=== PATIENT | male | born 1950 | race Caucasian/White ===

== ENCOUNTER 2016-12-26 14:04 | Inpatient (IN) ==
--- NOTE | 2016-12-26 14:28 | Emergency Department Report ---
Dizziness HPI - General Chief Complaint: Dizziness Stated Complaint: dizziness x3 days Time Seen by Provider: 12/26/16 14:27 Source: patient, family, EMS, old records reviewed Mode of arrival: EMS Limitations: no limitations - History of Present Illness HPI Narrative: Patient is a 66-year-old male presents emergency for evaluation of dizziness. Patient has been having intermittent dizziness for months now, originally saw Dr. Enrique Teixeira is an established patient in mid November was complaining of some mild dizziness at that time. Patient also been having intermittent chest pain, was admitted for 2-3 days by [facility] for evaluation of chest pain was discharged home with atypical chest pain. Patient had repeat significant dizziness at that time so represented same data [facility] emergency department. Patient was given meclizine with resolution of symptoms was discharged home on oral meclizine. Patient presented on Sunday to the [facility] emergency department complaining of severe dizziness not relieved by meclizine. Patient received a full workup including a CT scan, patient was able to ambulate with walker at that time, patient declined admission to intermediate or other facility and was discharged home to follow-up with Dr. Teixeira. Patient did follow-up with Dr. Teixeira yesterday, there was a 2nd attempt made to obtain an outpatient MRI. Scheduling called patient this morning patient told to schedule her that he was lying on the floor due to severe dizziness and he had fallen twice since Sunday. Scheduled call Dr. Teixeira's nurse, who called his brother. Brother called EMS to bring patient to the ER for evaluation. On arrival patient didn't take any of continued severe dizziness, last meclizine at 11 AM MD complaint: dizziness - Related Data Home Medications Medication Instructions Recorded Confirmed Lisinopril [Zestril] 40 mg PO DAILY 12/24/16 12/26/16 Amlodipine [Norvasc] 10 mg PO DAILY 12/26/16 12/26/16 Benzonatate [Tessalon Perles] 100 mg PO TID PRN 12/26/16 12/26/16 Meclizine [Antivert] 25 mg PO QIDPRN PRN 12/26/16 12/26/16 Allergies Allergy/AdvReac Type Severity Reaction Status Date / Time No Known Allergies Allergy Verified 12/26/16 14:17 Review of Systems Constitutional: Reports: weakness. Denies: fever, chills Eyes: Reports: vision change. Denies: eye pain, eye discharge ENT: Denies: ear pain, throat pain, dental pain Cardiovascular: Denies: chest pain, palpitations, dyspnea on exertion Respiratory: Denies: cough, dyspnea, wheezes Gastrointestinal: Denies: abdominal pain, nausea, vomiting Genitourinary: Denies: urgency, dysuria, frequency Neurological: Reports: weakness (generalized nonspecific). Denies: headache Endocrine: Reports: fatigue. Denies: heat or cold intolerance Hematological/Lymphatic: Denies: easy bleeding PFSH Patient Stated Medical History Other HEENT Yes: dental Hypertension Yes Clinic Medical History (Last Updated 12/25/16 @ 14:44 by NELI Christian ) HTN (hypertension) (Chronic Medical) Surgical History: Prostate removed 2005. Hernia repaired 2006 Family History: Family History (Last Updated 12/25/16 @ 14:46 by NELI Christian) Father Emphysema, unspecified Heart disease Mother Dementia - Social History Smoking status: Current every day smoker Substance use type: does not use Alcohol intake frequency: does not drink Current residence: Apartment/Private Home Physical Exam - General General appearance: alert - Eye Eye exam: Present: PERRL, EOMI - ENT ENT exam: Present: normal oropharynx, mucous membranes dry - Neck Neck exam: Present: full ROM - Chest Chest inspection: Present: symmetric chest wall rise. Absent: tenderness - Respiratory Respiratory exam: Present: normal lung sounds bilaterally. Absent: respiratory distress, wheezes, stridor - Cardiovascular Cardiovascular exam: Present: regular rate, normal rhythm, normal heart sounds - Abdominal Exam Abdominal exam: Present: soft, normal bowel sounds. Absent: distention, tenderness - Back Exam Back exam: Absent: tenderness, CVA tenderness (R), CVA tenderness (L), muscle spasm, paraspinal tenderness - Skin Skin exam: Present: warm, dry - Expanded Neurological Exam Patient oriented to: Present: person, place, time Speech: Present: fluid speech Cranial nerves: Normal: EOM function (II, III, IV, ), facial sensation (V), facial palsy (VII), gag reflex (IX), spinal accessory function (XI), tongue deviation (XII) Cerebellar function: Normal: finger to nose Motor strength - LUE: 5/5 Motor strength - RUE: 5/5 Motor strength - LLE: 4/5 Motor strength - RLE: 4/5 Sensory exam upper extremity: Normal: light touch Sensory exam lower extremity: Normal: light touch DTR: 2+: biceps (L), biceps (R) Coma scale eye opening: spontaneous Coma scale motor response: obeys commands Coma scale verbal response: oriented Coma scale total: 15 - Psychiatric Psychiatric exam: Present: normal affect, normal mood Course Vital Signs Temperature 98.3 F 12/26/16 14:04 Pulse Rate 59 L 12/26/16 14:04 Respiratory Rate 18 12/26/16 14:04 Blood Pressure 156/73 H 12/26/16 14:04 Pulse Oximetry 96 12/26/16 14:04 Temperature 98.3 F 12/26/16 14:04 Pulse Rate 55 L 12/26/16 15:46 Respiratory Rate 18 12/26/16 15:46 Blood Pressure 132/74 12/26/16 15:46 Pulse Oximetry 93 12/26/16 15:46 Dizziness - MDM Narrative Medical decision making narrative: Discuss case with Dr. Bliss, please give 325 of aspirin, he will admit inpatient - Differential Diagnosis Likely: benign paroxysmal positional vertigo, orthostatic hypotension, vertebral basilar insufficiency, cerebrovascular accident, acute vestibular neuronitis, transient cerebral ischemia - Medical Records Attestation: I reviewed the patient's medical records. - Lab Data Attestation: I reviewed the patient's lab results. Result diagrams: 12/26/16 14:46 12/26/16 14:46 Lab Results 12/26/16 12/26/16 Range/Units 14:46 14:46 WBC 13.1 H (4.5-11.0) T/MM3 RBC 4.77 (4.50-5.90) M/MM3 Hgb 16.0 (13.5-17.5) GM/DL Hct 47.9 (41-53) % MCV 100.4 H (80-100) UM3 MCH 33.5 (26-34) UUG MCHC 33.4 (31-37) GM/DL RDW Std Deviation 50.5 H (36.9-50.2) FL Plt Count 245 (130-400) T/MM3 MPV 11.2 (9.4-12.4) UM3 Immature Gran % (Auto) 0.4 (0.0-0.5) % Neut % (Auto) 73.6 H (33-66) % Lymph % (Auto) 13.7 L (23-45) % [place] % (Auto) 9.8 H (0-9.0) % Eos % (Auto) 1.8 (0-4) % Baso % (Auto) 0.7 (0-2) % Neut # (Auto) 9.6 H (1.8-7.7) T/MM3 Lymph # (Auto) 1.8 (1-4.8) T/MM3 [place] # (Auto) 1.3 H (0-0.8) T/MM3 Eos # (Auto) 0.2 (0-0.5) T/MM3 Baso # (Auto) 0.1 (0-0.2) T/MM3 Abs Immat Gran (auto) 0.05 H (0.00-0.03) T/MM3 Turbidity < 20 (0-20) Sodium 145 H (134-144) MEQ/L Potassium 3.9 (3.6-5) MEQ/L Chloride 113 H D (98-107) MEQ/L Carbon Dioxide 22 (22-30) MEQ/L Anion Gap 10 (5-15) MEQ/L BUN 11.0 (9-20) MG/DL Creatinine 0.9 D (0.8-1.5) MG/DL GFR Calculation 84 BUN/Creatinine Ratio 12 (6-26) RATIO Glucose 90 (75-110) MG/DL Calculated Osmolality 278 (261-280) MOSM/KG Calcium 9.6 (8.4-10.2) MG/DL Total Bilirubin 1.20 (0.20-1.30) MG/DL Icterus Index < 2 (0-7) AST 23 D (17-59) U/L ALT 42 (21-72) U/L Alkaline Phosphatase 72 (38-126) U/L Troponin I < 0.012 (0-0.12) ng/ml Total Protein 7.1 (6.3-8.2) G/DL Albumin 4.0 (3.5-5.0) G/DL Globulin 3.1 (2.4-3.6) G/DL Albumin/Globulin Ratio 1.3 (1.1-2.2) RATIO Specimen Hemolysis < 15 (0-25) Alcohol, Quantitative <10 (<10) MG/DL - Radiology Data Attestation: I reviewed the patient's radiology results. 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 Rate: bradycardia Rhythm: NSR [place]/QRS: normal Interpretation: no acute changes Disposition Clinical Impression: Cerebrovascular accident Qualifiers: CVA mechanism: embolism Precerebral and cerebral artery: posterior cerebral artery Laterality of affected vessel: left Qualified Code(s): I63.432 - Cerebral infarction due to embolism of left posterior cerebral artery Condition: Stable Time of Disposition: 15:32 - Seen By: physician
[2016-12-26] MEDS ORDERED: MECLIZINE 25 MG TABLET PO ONE (14:37)
--- NOTE | 2016-12-26 15:21 | CT Scan Report ---
Indication: Multiple recent falls PROCEDURE: CT head/brain wo con: Encounter: Initial Comparison: Head CT dated December 24, 2016 Technique: Axial CT images through the head were performed without contrast. Iterative Reconstruction dose reducing technique was utilized. FINDINGS: The ventricles are unchanged. There is a new infarct seen in the medial left occipital lobe as seen on axial image #24 with loss of the multani-white differentiation. Old bilateral basal ganglia lacunar infarcts. There is no evidence of acute intracranial hemorrhage, midline displacement, or mass effect. There are scattered areas of low attenuation in the white matter which most likely represent changes of chronic microvascular ischemia. The tympanic cavities and mastoid air cells are free of appreciable disease. There are no definite fractures of the skull base, calvarium, or visualized portion of the midface. 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 This is not visible on the comparison study and is estimated at 12 to 48 hours of age. Findings were called to Dr. Morrissey in the emergency department at 1515 on December 26, 2016. .
[2016-12-26] MEDS ORDERED: ASPIRIN 325 MG TABLET PO ONE (15:30)
[2016-12-26] MEDS ORDERED: BENZONATATE 100 MG CAPSULE PO PRN (16:11)
[2016-12-26] MEDS ORDERED: BISACODYL 10 MG SUPPOSITORY RECTALLY PRN (16:11)
[2016-12-26] MEDS ORDERED: ONDANSETRON 4 MG/2 ML INJECTION IVP PRN (16:11)
[2016-12-26] MEDS ORDERED: MECLIZINE 25 MG TABLET PO PRN (16:11)
[2016-12-26] MEDS: 1/2 NS 1,000 ML IV SCH (16:41)
--- NOTE | 2016-12-26 17:44 | History & Physical Report ---
<HusseinVesna guzman Martinez - Last Filed: 12/26/16 18:24> History of Present Illness Date: 12/26/16 Chief complaint: Dizziness HPI: Mr. Mena is a 66 y/o male who has had intermittent issues with dizziness, near-syncope, and vertigo for the last several months. He established with Dr. Teixeira in November, after not seeing a provider in over 2 years. He was started on Lisinopril for HTN and an MRI was ordered. Due to scheduling and insurance issues, this was not done in a timely manner. He was admitted to [facility] for chest pain r/o on 12/19/16 - EKG showed SR with PAC's, inverted T waves in leads II & III; serial troponin was negative x3; a CTA Chest showed a stable ascending aortic aneurysm; a myocardial perfusion study by Dr. Knott was normal with an estimated EF of 72%; carotid duplex was negative for hemodynamically significant stenosis. He was sent home and HCTZ was discontinued d/t fall risk. He was Rx meclizine for dizziness. He was evaluated again at [facility] on 12/24/16 for dizziness and a fall at home. Here, he received IVF and his dizziness improved. Head CT was negative for stroke or bleed. He was sent home in stable condition, but continued to have dizziness and generalized weakness. He has not eaten anything for the last 1-2 days, and hardly has taken in any fluids - has no appetite lately. His memory is fuzzy regarding his recent admission, and he feels like he's had some memory loss. When MRI called to schedule an appointment, he reported to the person on the other end of the line that he was on the floor. They contacted Iván's brother, who activated [address] scan in the ED showed a COMPUTER SYSTEMS MANAGER territory stroke. Labs showed mild leukocytosis, mild hypernatremia. Troponin was negative. EKG showed sinus heidi. He was given ASA and meclizine in the ED. Dr. Chi was contacted, and admitted Mr. Mena to inpatient status. Review of Systems - Constitutional Constitutional: Present: anorexia, chills (always cold), weakness. Absent: fever(s), headache(s) - EENMT Eyes: Present: change in vision, loss of vision Balance: Present: vertigo Mouth/Throat: Present: dry mouth. Absent: changes in swallowing - Cardiovascular Cardiovascular: Present: chest pain (recent admission for chest pain) Vascular: Absent: pedal edema - Respiratory Respiratory: Present: cough (occasional) - Gastrointestinal Gastrointestinal: Present: diarrhea (few days ago). Absent: abdominal pain, vomiting - Genitourinary Genitourinary: Present: other (decreased output). Absent: dysuria - Musculoskeletal Musculoskeletal: Present: abnormal gait, muscle weakness - Integumentary/Breasts Integumentary: Absent: rash, wounds - Neurological Neurological: Present: abnormal gait, dizziness, frequent falls, memory loss ( recently), weakness. Absent: focal weakness, numbness, paresthesias - Psychiatric Psychiatric: Present: depression (since the dizziness started). Absent: anxiety - Endocrine Endocrine: Absent: palpitations - Hematologic/Lymphatic Hematologic/Lymphatic: Absent: easy bleeding, easy bruising - Allergic/Immunologic Allergic/Immunologic: Absent: seasonal rhinorrhea PFSH HTN Prostate cancer stable ascending aortic aneurysm 4.4x3.[address] on 12/21/16 Surgical History: Prostate removed 2005. Colonoscopy. Epigastric hernia repaired 2006. [place] perfusion scan on 12/20/16 was negative for ischemia with EF of 72%. 2D Echo on 12/20/16 showed normal wall thickness, EF 60%, no wall motion abnormalities Family History: Family History (Last Updated 12/25/16 @ 14:46 by Heena Henry [facility]) Father Emphysema, unspecified Heart disease Mother Dementia - Social History Smoking status: Current every day smoker Packs per day: 1 Substance use type: does not use Alcohol intake frequency: 0-2 drinks per day (2-3 beers/day for the last 8-12 months. 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 Medications Home Medications Medication Instructions Recorded Confirmed Type Lisinopril [Zestril] 40 mg PO DAILY 12/24/16 12/26/16 History Amlodipine [Norvasc] 10 mg PO DAILY 12/26/16 12/26/16 History Benzonatate [Tessalon Perles] 100 mg PO TID PRN 12/26/16 12/26/16 History Meclizine [Antivert] 25 mg PO QIDPRN PRN 12/26/16 12/26/16 History Allergies Allergy/AdvReac Type Severity Reaction Status Date / Time No Known Allergies Allergy Verified 12/26/16 14:17 Exam Vital Signs: Temperature 97.6 F 12/26/16 16:11 Pulse Rate 58 L 12/26/16 16:11 Respiratory Rate 20 12/26/16 16:11 Blood Pressure 136/77 12/26/16 16:11 Pulse Oximetry 95 12/26/16 16:11 Height/Weight/BMI: Height 1.68 m Weight 66.4 kg Body Mass Index 23.6 - Constitutional Present: no acute distress, well nourished, well developed, thin - Routine HEENT Exam Head: Present: normocephalic Eye: Present: EOMI (some difficulty with EOM), PERRL ENT: Present: mucous membranes dry, oropharynx clear. Absent: dentition normal (edentulous) - Routine Neck Exam Present: supple - Routine Respiratory Exam Present: CTA bilaterally - Routine Cardiovascular Exam Present: RRR, S1, S2 - Routine Abdominal Exam Present: soft, normoactive bowel sounds, non distended, non tender - Routine Extremities Exam Present: no edema, pulses intact - Routine Skin Exam Present: intact, dry, warm - Routine Neurological Exam Present: alert, oriented X3, CN II-XII intact, motor deficit (possibly slightly weaker with left arm flexion but on further assessments this wasn't as appreciated), moving all extremities, hearing grossly intact. Absent: pronator drift, altered mental status, nystagmus, vision grossly intact (barely can see my fingers ), facial asymmetry, normal speech (occasionally slurs his speech), tremors - Routine Psychiatric Exam Present: normal affect, normal thought process (occasionally repeats himself), cooperative Results - Labs CBC & Chem 7: 12/26/16 14:46 12/26/16 14:46 - ECG Data Tracing #1 I reviewed this ECG and interpreted as documented below: Sinus bradycardia - Imaging and Cardiology CT scan - head Status: image reviewed by me (stroke - left occipital area) Assessment and Plan (1) Cerebrovascular accident Current visit: Yes Status: Acute DVT Prophylaxis: SCD's Resuscitation Status: Do Not Resuscitate Assessment and Plan: IMPRESSION Subacute ischemic infarct in the COMPUTER SYSTEMS MANAGER territory Acute vision loss Leukocytosis, POA - possible stress reaction Mild hypernatremia, POA HTN Prostate cancer stable ascending aortic aneurysm 4.4x3.[address] on 12/21/16 EtOH abuse; tobacco dependency PLAN Admit, inpatient status under the hospitalist service. IVF for hypernatremia and decreased oral drive - 1/2 NS at 75 mL/hr. Consult PT/OT/ST. Describes some features of vertigo, and perhaps an Alin maneuver could be attempted. Suspect he would benefit from IRU or SNF after acute discharge. With visual loss, consider ophtho consultation. Start ASA and statin. Check lipids in am. History of EtOH use - currently drinks 2-3 beers per day. Start Thiamine and Folate; Ativan PRN withdrawal symptoms. Nicotine patch PRN. Consult RT for tobacco cessation counseling. Lisinopril and Norvasc for HTN. He was on HCTZ but this was Dc'd d/t fall risk. Advanced directives: No DPOA; requests DNR status. [facility] records were reviewed. He had a myocardial perfusion scan which was negative, an echocardiogram that showed an EF 60% with normal wall thickness and no regional wall motion abnormalities. He also had a carotid Doppler that was negative for hemodynamically significant carotid artery stenosis. He also had a CTA of his chest done which showed a stable descending aorta that measures up to 4.4 x 3.8 cm. TSH on 12/20/16 was 0.93 & hgb A1c was 5.6%. No recent lipid panel. Hospital Course Summary Disclaimer: The visit summary below is not to be considered part of the above Progress Note. Hospital Course: 12/26/16 18:42 IMPRESSION Subacute ischemic infarct in the COMPUTER SYSTEMS MANAGER territory Acute vision loss Leukocytosis, POA - possible stress reaction Mild hypernatremia, POA HTN Prostate cancer stable ascending aortic aneurysm 4.4x3.[address] on 12/21/16 EtOH abuse; tobacco dependency PLAN Admit, inpatient status under the hospitalist service. IVF for hypernatremia and decreased oral drive - 1/2 NS at 75 mL/hr. Consult PT/OT/ST. Describes some features of vertigo, and perhaps an Alin maneuver could be attempted. Suspect he would benefit from IRU or SNF after acute discharge. With visual loss, consider ophtho consultation. Start ASA and statin. Check lipids in am. History of EtOH use - currently drinks 2-3 beers per day. Start Thiamine and Folate; Ativan PRN withdrawal symptoms. Nicotine patch PRN. Consult RT for tobacco cessation counseling. Lisinopril and Norvasc for HTN. He was on HCTZ but this was Dc'd d/t fall risk. Advanced directives: No DPOA; requests DNR status. [facility] records were reviewed. He had a myocardial perfusion scan which was negative, an echocardiogram that showed an EF 60% with normal wall thickness and no regional wall motion abnormalities. He also had a carotid Doppler that was negative for hemodynamically significant carotid artery stenosis. He also had a CTA of his chest done which showed a stable descending aorta that measures up to 4.4 x 3.8 cm. TSH on 12/20/16 was 0.93 & hgb A1c was 5.6%. No recent lipid panel. <Richi Chi - Last Filed: 12/26/16 19:10> History of Present Illness Date: 12/26/16 [facility] Patient Stated Medical History Other HEENT Yes: dental Hypertension Yes Clinic Medical History (Last Updated 12/25/16 @ 14:44 by NELI Christian ) HTN (hypertension) (Chronic Medical) Family History: Family History (Last Updated 12/25/16 @ 14:46 by NELI Christian) Father Emphysema, unspecified Heart disease Mother Dementia Exam Vital Signs: Temperature 97.6 F 12/26/16 16:11 Pulse Rate 58 L 12/26/16 16:11 Respiratory Rate 20 12/26/16 16:11 Blood Pressure 136/77 12/26/16 16:11 Pulse Oximetry 95 12/26/16 16:11 Height/Weight/BMI: Height 1.68 m Weight 66.4 kg Body Mass Index 23.6 Results - Labs CBC & Chem 7: 12/26/16 14:46 12/26/16 14:46 Assessment and Plan (1) Cerebrovascular accident Current visit: Yes Status: Acute Assessment and Plan: IMPRESSION Subacute ischemic infarct in the COMPUTER SYSTEMS MANAGER territory Acute vision loss Leukocytosis, POA - possible stress reaction Mild hypernatremia, POA HTN Prostate cancer stable ascending aortic aneurysm 4.4x3.[address] on 12/21/16 EtOH abuse; tobacco dependency Have independently interviewed and examined pt. Chart reviewed. Case discussed with ED physician and my CAREER DEVELOPMENT SPECIALIST. Care plan developed with my supervision; agree with above. Has been struggling with significant dizziness and instability for the past month. Outpatient evaluations not revealing pathology. Was not able to get self up today-EMS activated. Feels diffusely weak-maybe more on left than right. Vision with significant decline. Notes cough, but not congested to chest. Oral drive decreased the past 2 days. No nausea. Lungs: decreased bilaterally CV: bradycardic, regular AB: soft nt/nd EXT: thin, no edema Plan: Inpatient admission due to subacute CVA-anticipate greater than 2 midnights of care needed. PT/OT/Speech eval. MRI of brain. 1/2NS at 75cc/hr for hydration as oral drive decreased and sodium with elevation. ASA 81mg daily due to stroke. Add Lipitor 40mg at night due to stroke. Continue BP medications. Monitor lab. Care to return to Dr Teixeira at time of discharge from [facility]. Hospital Course Summary Disclaimer: The visit summary below is not to be considered part of the above Progress Note.
[2016-12-26] MEDS: NICOTINE 21 MG PATCH TD PRN (20:11)
[2016-12-26] MEDS: ATORVASTATIN 40 MG TABLET PO SCH (20:11)
[2016-12-26] MEDS ORDERED: FALL RISK - PHARMACY CONSULT XX ONE (22:26)
[2016-12-27] MEDS: ACETAMINOPHEN 325 MG TABLET PO PRN ×2 (01:00→08:05)
[2016-12-27] MEDS: 1/2 NS 1,000 ML IV SCH (07:09)
--- NOTE | 2016-12-27 08:18 | Ultrasound Report ---
Indication: CVA PROCEDURE: US carotid doppler BI: TECHNIQUE: Grayscale, color and duplex Doppler imaging was performed of the carotid systems bilaterally. Velocities in cm/sec - validated velocity measurements with angiographic measurements, velocity criteria are extrapolated from diameter data as defined by the Society of Radiologists in Ultrasound Consensus Conference Radiology 2003; 229;340-346. RIGHT: PSV ICA 85.3 EDV ICA 24.4 PSV CCA 64.9 EDV CCA 11.2 PSV ECA 103 ICA Diameter reduction 10%-30% (1.0-1.2 PSV<110)% LEFT: PSV ICA 68.8 EDV ICA 20.2 PSV CCA 84 EDV CCA 19.9 PSV ECA 114 ICA Diameter reduction 10%-30% (1.0-1.2 PSV<110)% The right vertebral artery is patent with cephalic flow. The left vertebral artery is patent with cephalic flow. Heavy calcified plaque at the left carotid bulb and proximal ICA. Mild plaque in the common carotid artery with moderate plaque in the right carotid bulb and proximal to mid ICA. No focal velocity elevations. IMPRESSION: No hemodynamically significant carotid stenosis. .
--- NOTE | 2016-12-27 10:26 | Echocardiogram ---
DATE 12/26/2016 INDICATION A stroke. TECHNICAL QUALITY Technically good 2-D, M-mode, Doppler echocardiographic images were submitted for interpretation. FINDINGS 1. CARDIAC CHAMBERS. All cardiac chamber measurements are normal. Aortic root diameter is normal. RV size and contractility appear normal. 2. LEFT VENTRICLE. Wall thickness is normal at 8 mm. Wall motion analysis is normal. Systolic function is normal, EF of 70%. Diastolic dysfunction, grade I /IV, is present. 3. VALVES. Aortic and mitral valve exhibit mild sclerotic changes, normal valve excursion. Posterior mitral annular calcification is present. Tricuspid valve structure and motion appear normal. Normal valve excursion. 4. DOPPLER. Shows trace tricuspid regurgitation with estimated systolic pressure of 32 mmHg. Trace pulmonic insufficiency is present. No significant valvular dysfunction. Trace mitral regurgitation. 5. No evidence of intracardiac masses, thrombi, vegetations or shunts. Bubble study was not performed. IMPRESSION 1. Normal cardiac chamber size. 2. Normal LV systolic function, EF of 70%. 3. Diastolic dysfunction, grade I/IV. 4. Mild sclerotic changes of the aortic and mitral valve without significant valvular dysfunction. 5. No evidence of intracardiac masses, thrombi, vegetations or shunts. 6. The patient is in sinus rhythm during the study. [facility]
[2016-12-27] MEDS: ASPIRIN 81 MG CHEWABLE TABLET PO SCH (10:29)
[2016-12-27] MEDS: LISINOPRIL 40 MG TABLET PO SCH (10:29)
[2016-12-27] MEDS: FOLIC ACID 1 MG TABLET PO SCH (10:29)
[2016-12-27] MEDS: AMLODIPINE 10 MG TABLET PO SCH (10:29)
--- NOTE | 2016-12-27 12:03 | Magnetic Resonance Report ---
Indication: CVA PROCEDURE: MR head/brain wo con: Encounter: Initial Comparisons: Head CT dated December 26, 2016 Technique: Multiplanar, multisequence, MR imaging of the head without contrast was acquired. FINDINGS: Large area of acute diffusion restriction in the left occipital lobe as seen on the CT comparison. This extends into the medial posterior aspect of the temporal lobe as well. There are smaller foci of diffusion restriction in the right thalamus and right posterior limb of the internal capsule. These regions all have T2/FLAIR hyperintensity as expected. Moderate generalized atrophy. The ventricles are stable. There are additional areas of T2/FLAIR signal abnormality in the deep frontoparietal white matter that most likely represent small vessel ischemic disease. This is advanced for the patient's age. The brain stem, cerebellum, and cerebral hemispheres otherwise have a normal morphologic appearance as well as MR signal intensity on all pulse sequences. There is no evidence of an intracranial mass lesion, intracranial hemorrhage, or hydrocephalus. The visualized portions of the orbits, calvarium, paranasal sinuses, and skull base demonstrate no significant abnormality. IMPRESSION: Acute left occipital and posterior temporal lobe infarcts in the [employer] territory. Smaller lacunar type infarcts in the right medial frontal and temporal lobe in the distribution of the anterior choroidal artery. Given the bilateral infarcts in multiple vascular territories an embolic source is suspected. .
[2016-12-27] MEDS ORDERED: Tdap VACCINE ADMINISTR CHARGE INJ ONE (14:00)
[2016-12-27] MEDS ORDERED: INFLUENZA VAC High Dose 2017-18 (Fluzone HD*) (>=65yo) 0.5ml IM ONE (14:00)
[2016-12-27] MEDS ORDERED: INFLUENZA VAC. INJ. ADMIN CHARGE INJ ONE (14:00)
[2016-12-27] MEDS ORDERED: TETANUS, DIPHTHERIA, a PERTUSSIS (Tdap) 0.5ml INJECTION IM ONE (14:11)
--- NOTE | 2016-12-27 14:17 | Progress Note ---
- Date 12/27/16 Subjective: The patient was seen at 12:30 AM with his daughter and son-in-law at bedside. He has returned from his MRI of the brain. Events of the last month were reviewed reviewed with the patient. His primary concern has been dizziness for which he's had recent evaluations. He does report when he was hospitalized at [facility] he was diagnosed with vertigo. He was started on a medication presumably meclizine, which helped with his symptoms. However since he's been home he continues to feel dizzy, fall frequently, and uses his cane which she had not had to use previously. He reports on either Sunday or Sunday of this week he noted some visual field changes where he can only see the vision on the left half using either eye, the right half remains blurry and cloudy. His daughter is at bedside and reports is also complaining of diarrhea. He denies fevers chills or sweats recently his weight may be slightly down from his normal. It appears he has not been eating well, he is unable to elucidate why. He does continue to smoke U is advised to quit. He drinks alcohol but he reports he drinks much less than he did. Objective Vital signs: Temperature 97.2 F 12/27/16 07:32 Pulse Rate 62 12/27/16 08:00 Respiratory Rate 20 12/27/16 07:32 Blood Pressure 124/67 12/27/16 07:32 Pulse Oximetry 92 12/27/16 07:32 Height/Weight/BMI: Height 5 ft 6 in Weight 144 lb 9.972 oz Body Mass Index 23.6 - Routine Psychiatric Exam Comments: In general, the patient is alert, cooperative with exam, and in no respiratory distress. He does not recall that he is in [place]. HEENT: Head is atraumatic, normocephalic, no conjunctival petechiae, no oral thrush, mucous membranes are dry. Lungs: Clear to auscultation without wheezes, crackles or rhonchi CV: Regular rate and rhythm without murmur Abdomen: Soft, nontender, bowel sounds are present, there is no guarding no rebound. Extremities: No clubbing, no cyanosis, no edema, unkempt nails. Skin: Warm and dry, no sign of rash. small scab on left knee, large fleshy mass (Lipoma?) midline posterior neck Neuro: Patient is alert with occasional slurred speech, demonstrates left homonymous hemianopsia, EOMi, Pupils slightly dilated, reactive,no tongue fasciculations, perhaps sl facial droop on the left, motor and sensory are grossly intact Results - Labs CBC & Chem 7: 12/27/16 04:07 12/27/16 04:07 Labs: Laboratory Tests 12/26/16 12/27/16 14:46 04:07 Triglycerides 84 Cholesterol Pending LDL Cholesterol, Calc Pending VLDL Cholesterol 16.8 HDL Cholesterol 36 L Cholesterol/HDL Ratio Pending Alcohol, Quantitative <10 - Echocardiogram Echocardiogram: 2D echo 1. Normal cardiac chamber size. 2. Normal LV systolic function, EF of 70%. 3. Diastolic dysfunction, grade I/IV. 4. Mild sclerotic changes of the aortic and mitral valve without significant valvular dysfunction. 5. No evidence of intracardiac masses, thrombi, vegetations or shunts. 6. The patient is in sinus rhythm during the study - Imaging and Cardiology MRI - head Additional comments: MRI of the head and brain without contrast contrast 12/27/2016: Large area of acute diffusion restriction in the left occipital lobe as seen in the CT comparison. This extends into the medial posterior aspect of the temporal lobe as well. There are smaller foci of diffusion restriction in the right thalamus and right posterior limb of the internal capsule. Additional areas of signal abnormality in the deep frontoparietal white matter that most likely represents small vessel ischemic disease. Impression: Acute left occipital and posterior temporal lobe infarcts in the GRIPS territory. Smaller lacunar type infarcts in the right medial frontal and temporal lobe in the distribution of the anterior choroidal artery. Embolic source is suspected. US carotid doppler The right vertebral artery is patent with cephalic flow. The left vertebral artery is patent with cephalic flow. Heavy calcified plaque at the left carotid bulb and proximal ICA. Mild plaque in the common carotid artery with moderate plaque in the right carotid bulb and proximal to mid ICA. No focal velocity elevations. IMPRESSION: No hemodynamically significant carotid stenosis. Assessment and Plan (1) Cerebrovascular accident Current visit: Yes Status: Acute DVT Prophylaxis: Lovenox GI Prophylaxis: Protonix Resuscitation Status: Do Not Resuscitate Assessment and Plan: IMPRESSION Acute left occipital and posterior temporal lobe infarcts, smaller lacunar type infarcts in the right medial frontal and temporal lobe suspect embolic source Acute vision loss secondary to homonymous hemianopsia with left occipital involvement Leukocytosis, POA - possible stress reaction resolved Mild hypernatremia, POA improved with IV fluids however now with hypokalemia we will supplement HTN stable on current meds Prostate cancer stable ascending aortic aneurysm 4.4x3.[address] on 12/21/16 EtOH abuse; tobacco dependency -patient has been advised to quit Recommendations: Needs further evaluation of embolic source Will consult Dr. Veronica for neurology- discussed with him. States patient on therapeutic Lovenox at 1 mg/kg subcutaneous twice a day, a fasting lipid profile is pending, the patient remains on telemetry. We'll consult Dr. Coates for a SIMON Will supplement potassium with by mouth today We'll add Protonix for GI prophylaxis We'll check lab tomorrow The patient will need rehabilitation post discharge, PT and OT evaluation are pending. Discussed with the patient's family. Hospital Course Summary Disclaimer: The visit summary below is not to be considered part of the above Progress Note. Hospital Course: 12/26/16 18:42 IMPRESSION Subacute ischemic infarct in the GRIPS territory Acute vision loss Leukocytosis, POA - possible stress reaction Mild hypernatremia, POA HTN Prostate cancer stable ascending aortic aneurysm 4.4x3.[address] on 12/21/16 EtOH abuse; tobacco dependency PLAN Admit, inpatient status under the hospitalist service. IVF for hypernatremia and decreased oral drive - 1/2 NS at 75 mL/hr. Consult PT/OT/ST. Describes some features of vertigo, and perhaps an Alin maneuver could be attempted. Suspect he would benefit from IRU or SNF after acute discharge. With visual loss, consider ophtho consultation. Start ASA and statin. Check lipids in am. History of EtOH use - currently drinks 2-3 beers per day. Start Thiamine and Folate; Ativan PRN withdrawal symptoms. Nicotine patch PRN. Consult RT for tobacco cessation counseling. Lisinopril and Norvasc for HTN. He was on HCTZ but this was Dc'd d/t fall risk. Advanced directives: No DPOA; requests DNR status. [facility] records were reviewed. He had a myocardial perfusion scan which was negative, an echocardiogram that showed an EF 60% with normal wall thickness and no regional wall motion abnormalities. He also had a carotid Doppler that was negative for hemodynamically significant carotid artery stenosis. He also had a CTA of his chest done which showed a stable descending aorta that measures up to 4.4 x 3.8 cm. TSH on 12/20/16 was 0.93 & hgb A1c was 5.6%. No recent lipid panel. 12/27/16 14:43 Acute left occipital and posterior temporal lobe infarcts, smaller lacunar type infarcts in the right medial frontal and temporal lobe suspect embolic source Acute vision loss secondary to homonymous hemianopsia with left occipital involvement Leukocytosis, POA - possible stress reaction resolved Mild hypernatremia, POA improved with IV fluids however now with hypokalemia we will supplement HTN stable on current meds Prostate cancer stable ascending aortic aneurysm 4.4x3.[address] on 12/21/16 EtOH abuse; tobacco dependency -patient has been advised to quit Recommendations: Needs further evaluation of embolic source Will consult Dr. Veronica for neurology- discussed with him. States patient on therapeutic Lovenox at 1 mg/kg subcutaneous twice a day, a fasting lipid profile is pending, the patient remains on telemetry. We'll consult Dr. Coates for a SIMON Will supplement potassium with by mouth today We'll add Protonix for GI prophylaxis We'll check lab tomorrow The patient will need rehabilitation post discharge, PT and OT evaluation are pending. Discussed with the patient's family.
--- NOTE | 2016-12-27 14:34 | Cardiology Consult Note ---
History of Present Illness Consult date: 12/27/16 <Ana Powell - 12/27/16 14:45> Requesting physician: Elidia Mendoza <Ana Powell M - 12/27/16 14:45> Chief complaint: embolic CVA <Ana Powell - 12/27/16 14:45> History of present illness: Mr. Mena is a 66 year old male who has had intermittent issues with dizziness, near-syncope, and vertigo for the last several months. He established with Dr. Teixeira in November, after not seeing a provider in over 2 years. He was started on Lisinopril for HTN and an MRI was ordered. Due to scheduling and insurance issues, this was not done in a timely manner. He was admitted to [facility] for chest pain r/o on 12/19/16 - EKG showed SR with PAC' s, inverted T waves in leads II & III; serial troponin was negative x3; He had a myocardial perfusion study by Dr. Diaz which was normal, an echocardiogram that showed an EF 60% with normal wall thickness and no regional wall motion abnormalities. He also had a carotid Doppler that was negative for hemodynamically significant carotid artery stenosis. He also had a CTA of his chest done which showed a stable descending aorta that measures up to 4.4 x 3.8 cm. He was sent home and HCTZ was discontinued due to increased risk for falls. He was prescribed meclizine for dizziness. He was evaluated again at [facility] ED on 12/24/16 for dizziness and a fall at home. Here, he received IVF and his dizziness improved. Head CT was negative for stroke or bleed. He was sent home in stable condition, but continued to have dizziness and generalized weakness. He has not eaten anything for the last 1-2 days, and hardly has taken in any fluids - has no appetite lately. His memory is fuzzy regarding his recent admission, and he feels like he's had some memory loss. When MRI called to schedule an appointment, he reported to the person on the other end of the line that he was on the floor. They contacted Iván's brother, who activated 911 [address] transport[address] scan in the ED showed a OUTBOUND CALL CENTER REPRESENTATIVE territory stroke. Labs showed mild leukocytosis, mild hypernatremia. Troponin was negative. EKG showed sinus heidi. He was given ASA and meclizine in the ED. Dr. Chi was contacted, and admitted Mr. Mena to inpatient status. Dr Bates is consulted for SIMON and evaluation of possible cardiac etiology of stroke. <Sherry,Ana [facility] 12/27/16 14:45> Review of Systems - Constitutional Constitutional: Present: weakness. Absent: chills, fever(s) [facility] 14[facility] - EENMT Eyes: Absent: change in vision [facility] 12/27/16 14:45> Balance: Present: vertigo <[facility] 12/27/16 14:45> Mouth/Throat: Absent: sore throat, scratchy throat [facility] 12/27/16 14:45> - Cardiovascular Cardiovascular: Absent: chest pain, palpitations, syncope, edema, heart murmur <[facility] 12/27/16 14:45> Rhythm: Absent: abnormal rhythm [facility] 14[facility]45> Vascular: Absent: pedal edema [facility] 12/27/16 14:45> - Respiratory Respiratory: Absent: cough, dyspnea [facility] 12/27/16 14:45> - Gastrointestinal Gastrointestinal: Absent: abdominal pain, diarrhea, nausea, vomiting <Sherry [facility] 12/27/16 14:45> - Genitourinary Genitourinary: Absent: dysuria [facility] 12/27/16 14:45> - Neurological Neurological: Present: dizziness, weakness <[facility] 12/27/16 14:45> - Endocrine Endocrine: Absent: palpitations <[facility] 12/27/16 14:45> [facility] Patient Stated Medical History Other HEENT Yes: dental Hypertension Yes Sleep Apnea No Clinic Medical History (Last Updated 12/25/16 @ 14:44 by Heena Henry Mariluz ) HTN (hypertension) (Chronic Medical) <Ignacio Bates - 12/29/16 13:00> Patient Stated Medical History Other HEENT Yes: dental Hypertension Yes Clinic Medical History (Last Updated 12/25/16 @ 14:44 by Heena Henry [facility] ) HTN (hypertension) (Chronic Medical) <Ana Powell - 12/27/16 14:45> Surgical History: Prostate removed 2005. Colonoscopy. Epigastric hernia repaired 2006. Lexican perfusion scan on 12/20/16 was negative for ischemia with EF of 72%. 2D Echo on 12/20/16 showed normal wall thickness, EF 60%, no wall motion abnormalities <Ana Powell - 12/27/16 14:45> Family History: Family History (Last Updated 12/25/16 @ 14:46 by Heena Henry [facility]) Father Emphysema, unspecified Heart disease Mother Dementia <Ignacio Bates - 12/29/16 13:00> Family History (Last Updated 12/25/16 @ 14:46 by Heena Henry [facility]) Father Emphysema, unspecified Heart disease Mother Dementia <Ana Powell - 12/27/16 14:45> - Social History Smoking status: Current every day smoker <Ana Powell - 12/27/16 14:45> Substance use type: does not use <Ana Powell - 12/27/16 14:45> Alcohol intake frequency: 3 or more drinks per day (beer) <Ana Powell - 14:45> Housing: house <Ana Powell - 12/27/16 14:45> Household members: none <Ana Powell - 12/27/16 14:45> Current occupational status: retired <Ana Powell - 12/27/16 14:45> Current residence: Apartment/Private Home <Ana Powell - 12/27/16 14:45> Medications Home Medications Medication Instructions Recorded Confirmed Type Lisinopril [Zestril] 40 mg PO DAILY 12/24/16 12/26/16 History Amlodipine [Norvasc] 10 mg PO DAILY 12/26/16 12/26/16 History Benzonatate [Tessalon Perles] 100 mg PO TID PRN 12/26/16 12/26/16 History Meclizine [Antivert] 25 mg PO QIDPRN PRN 12/26/16 12/26/16 History <Ignacio Bates - 12/29/16 13:00> Allergies Allergy/AdvReac Type Severity Reaction Status Date / Time No Known Allergies Allergy Verified 12/26/16 14:17 <Ignacio Bates - 12/29/16 13:00> Exam Vital signs: Temperature 98.2 F 12/29/16 04:00 Pulse Rate 54 L 12/29/16 04:00 Respiratory Rate 16 12/29/16 04:00 Blood Pressure 136/71 12/29/16 04:00 Pulse Oximetry 95 12/29/16 04:00 <Ignacio Bates - 12/29/16 13:00> Temperature 97.2 F 12/27/16 07:32 Pulse Rate 62 12/27/16 08:00 Respiratory Rate 20 12/27/16 07:32 Blood Pressure 124/67 12/27/16 07:32 Pulse Oximetry 92 12/27/16 07:32 <Ana Powell [facility] 12/27/16 14:45> - Constitutional no acute distress, well nourished, cooperative <Ana Powell [facility] 12/27/16 14: 45> - Routine HEENT Exam Head: Present: normocephalic <Ana Powell [facility] 12/27/16 14:45> ENT: Present: mucous membranes moist <Ana Powell [facility] 12/27/16 14:45> - Routine Neck Exam Absent: JVD, carotid bruit <Ana Powell [facility] 12/27/16 14:45> - Routine Chest/Breast/Axilla Exam Chest wall: Absent: tenderness <Ana Powell [facility] 12/27/16 14:45> - Routine Respiratory Exam Present: CTA bilaterally. Absent: rales, wheezes <Ana Powell [facility] 12/27/16 14:45> - Routine Cardiovascular Exam Present: RRR, no murmur. Absent: JVD <Ana Powell 12/27/16 14:45> - Routine Abdominal Exam Present: soft, normoactive bowel sounds <Ana Powell [facility] 12/27/16 14:45> - Routine Extremities Exam Present: no edema, pulses intact <Ana Powell [facility] 12/27/16 14:45> - Routine Skin Exam Present: intact, dry, warm <Ana Powell - 12/27/16 14:45> - Routine Neurological Exam Present: alert, oriented X3, vision grossly intact, hearing grossly intact. Absent: normal speech (slurred speech) <Ana Powell - 12/27/16 14:45> - Routine Psychiatric Exam Present: normal affect, normal thought process <Ana Powell - 12/27/16 14: 45> Results 12/29/16 03:52 12/29/16 03:52 <Ignacio Bates - 12/29/16 13:00> Lipids 12/27/16 Range/Units 04:07 Cholesterol 113 L (132-199) MG/DL Cholesterol/HDL Ratio 3.1 (0-5.0) RATIO CBC 12/29/16 Range/Units 03:52 WBC 10.9 (4.5-11.0) T/MM3 RBC 4.61 (4.50-5.90) M/MM3 Hgb 15.3 (13.5-17.5) GM/DL Hct 46.0 (41-53) % Plt Count 254 (130-400) T/MM3 Neut # (Auto) 7.4 (1.8-7.7) T/MM3 Lymph # (Auto) 1.7 (1-4.8) T/MM3 [place] # (Auto) 1.3 H (0-0.8) T/MM3 Eos # (Auto) 0.5 (0-0.5) T/MM3 Baso # (Auto) 0.1 (0-0.2) T/MM3 Comprehensive Metabolic Panel 12/29/16 Range/Units 03:52 Sodium 144 (134-144) MEQ/L Potassium 3.6 (3.6-5) MEQ/L Chloride 107 (98-107) MEQ/L Carbon Dioxide 26 (22-30) MEQ/L BUN 13.0 (9-20) MG/DL Creatinine 0.9 (0.8-1.5) MG/DL Glucose 85 (75-110) MG/DL Calcium 9.5 (8.4-10.2) MG/DL Intake and Output 12/28/16 12/29/16 12/29/16 22:59 06:59 14:59 Intake Total 120 / 120 200 / 200 240 / 240 Output Total 300 / 300 200 / 200 300 / 300 Balance -180 / -180 0 / 0 -60 / -60 Intake: Oral 120 / 120 200 / 200 240 / 240 Output: Urine 300 / 300 200 / 200 300 / 300 Other: Urine Appearance Cloudy Clear Urine Color Light Aletha Light Aletha Dark Yellow Urine Odor Strong Strong Weight 65.317 kg <Ignacio Bates - 12/29/16 13:00> Lipids 12/27/16 Range/Units 04:07 Triglycerides 84 (40-160) MG/DL HDL Cholesterol 36 L (40-60) MG/DL CBC 12/27/16 Range/Units 04:07 WBC 11.6 H (4.5-11.0) T/MM3 RBC 4.45 L (4.50-5.90) M/MM3 Hgb 14.8 (13.5-17.5) GM/DL Hct 45.3 (41-53) % Plt Count 243 (130-400) T/MM3 Neut # (Auto) 8.0 H (1.8-7.7) T/MM3 Lymph # (Auto) 1.9 (1-4.8) T/MM3 [place] # (Auto) 1.3 H (0-0.8) T/MM3 Eos # (Auto) 0.3 (0-0.5) T/MM3 Baso # (Auto) 0.1 (0-0.2) T/MM3 Comprehensive Metabolic Panel 12/27/16 Range/Units 04:07 Sodium 143 (134-144) MEQ/L Potassium 3.5 L (3.6-5) MEQ/L Chloride 109 H (98-107) MEQ/L Carbon Dioxide 22 (22-30) MEQ/L BUN 11.0 (9-20) MG/DL Creatinine 0.8 (0.8-1.5) MG/DL Glucose 66 L (75-110) MG/DL Calcium 9.2 (8.4-10.2) MG/DL Intake and Output 12/26/16 12/27/16 12/27/16 22:59 06:59 14:59 Intake Total 1000 / 1000 533.75 / 533.75 Output Total 650 / 650 800 / 800 Balance -650 / -650 1000 / 1000 -266.25 / -266.25 Intake: IV 1000 / 1000 533.75 / 533.75 1/2 Ns 1,000 ml @ 75 mls/ 1000 / 1000 533.75 / 533.75 hr IV .[id number] YARED Rx#: [id number] Output: Urine 650 / 650 800 / 800 Other: Urine Appearance Cloudy Urine Color Dark Aletha Yellow Urine Odor Strong # Voids 1 Weight 146 lb 6.191 oz 144 lb 9.972 oz Patient Weight 12/28/16 06:59 Weight 144 lb 9.972 oz <SherryAna M - 12/27/16 14:45> - Imaging and Cardiology Echo: report reviewed <Ana Powell - 12/27/16 14:45> EKG results: image reviewed <SherryAna - 12/27/16 14:45> Imaging & Cardiology Narrative: 12/27/16 14:43 Date of Exam: 12/26/16 Ordering Provider: Richi Chi MD Type of Exam(s): US carotid doppler BI Reason for Exam(s): CVA Indication: CVA PROCEDURE: US carotid doppler BI: TECHNIQUE: Grayscale, color and duplex Doppler imaging was performed of the carotid systems bilaterally. Velocities in cm/sec - validated velocity measurements with angiographic measurements, velocity criteria are extrapolated from diameter data as defined by the Society of Radiologists in Ultrasound Consensus Conference Radiology 2003; 229;340-346. RIGHT: PSV ICA 85.3 EDV ICA 24.4 PSV CCA 64.9 EDV CCA 11.2 PSV ECA 103 ICA Diameter reduction 10%-30% (1.0-1.2 PSV<110)% LEFT: PSV ICA 68.8 EDV ICA 20.2 PSV CCA 84 EDV CCA 19.9 PSV ECA 114 ICA Diameter reduction 10%-30% (1.0-1.2 PSV<110)% The right vertebral artery is patent with cephalic flow. The left vertebral artery is patent with cephalic flow. Heavy calcified plaque at the left carotid bulb and proximal ICA. Mild plaque in the common carotid artery with moderate plaque in the right carotid bulb and proximal to mid ICA. No focal velocity elevations. IMPRESSION: No hemodynamically significant carotid stenosis. Date of Exam: 12/26/16 Type of Exam(s): US echo doppler complete DATE 12/26/2016 INDICATION A stroke. TECHNICAL QUALITY Technically good 2-D, M-mode, Doppler echocardiographic images were submitted for interpretation. FINDINGS 1. CARDIAC CHAMBERS. All cardiac chamber measurements are normal. Aortic root diameter is normal. RV size and contractility appear normal. 2. LEFT VENTRICLE. Wall thickness is normal at 8 mm. Wall motion analysis is normal. Systolic function is normal, EF of 70%. Diastolic dysfunction, grade I /IV, is present. 3. VALVES. Aortic and mitral valve exhibit mild sclerotic changes, normal valve excursion. Posterior mitral annular calcification is present. Tricuspid valve structure and motion appear normal. Normal valve excursion. 4. DOPPLER. Shows trace tricuspid regurgitation with estimated systolic pressure of 32 mmHg. Trace pulmonic insufficiency is present. No significant valvular dysfunction. Trace mitral regurgitation. 5. No evidence of intracardiac masses, thrombi, vegetations or shunts. Bubble study was not performed. IMPRESSION 1. Normal cardiac chamber size. 2. Normal LV systolic function, EF of 70%. 3. Diastolic dysfunction, grade I/IV. 4. Mild sclerotic changes of the aortic and mitral valve without significant valvular dysfunction. 5. No evidence of intracardiac masses, thrombi, vegetations or shunts. 6. The patient is in sinus rhythm during the study. <Ana Powell - 12/27/16 14:45> EKG interpretations - EKG EKG results cardiology: sinus rhythm <Ana Powell - 12/27/16 14:45> EKG shows: bradycardia <Ana Powell - 12/27/16 14:45> - Blocks, axis, hypertrophy, ST abn Repolarization changes or abnormalities: nonspecific abnormality, ST segment, and/or T wave <Ana Powell - 12/27/16 14:45> Assessment and Plan - Attestation Attestation Narrative: 12/29/16 12:59 Recommendation After examining the patient I agree with the above assessment. I am involved in the formulation of the patient's plan of care. <Ignacio Bates - 12/29/16 13:00> - Assessment and Plan (1) Cerebrovascular accident Current visit: Yes Status: Acute (2) Essential (primary) hypertension Current visit: Yes Status: Acute (3) Mixed hyperlipidemia Current visit: Yes Status: Acute <Ignacio Bates - 12/29/16 13:00> (1) Cerebrovascular accident Current visit: Yes Status: Acute SIMON tomorrow to identify possible thrombus or vegetation. - Continue to monitor cardiac telemetry for arrhythmia. Thank you for allowing us to participate in this patient's care. (2) Essential (primary) hypertension Current visit: Yes Status: Acute Continue Amlodipine 10mg daily for BP control (3) Mixed hyperlipidemia Current visit: Yes Status: Acute Continue Atorvastatin - Lipid panel in am <Ana Powell - 12/28/16 17:18> Hospital Course Summary Disclaimer: The visit summary below is not to be considered part of the above Progress Note. <Ignacio Bates - 12/29/16 13:00> The visit summary below is not to be considered part of the above Progress Note. <SherryAna Leger - 12/27/16 14:45> Hospital Course: 12/26/16 18:42 IMPRESSION Subacute ischemic infarct in the OUTBOUND CALL CENTER REPRESENTATIVE territory Acute vision loss Leukocytosis, POA - possible stress reaction Mild hypernatremia, POA HTN Prostate cancer stable ascending aortic aneurysm 4.4x3.[address] on 12/21/16 EtOH abuse; tobacco dependency PLAN Admit, inpatient status under the hospitalist service. IVF for hypernatremia and decreased oral drive - 1/2 NS at 75 mL/hr. Consult PT/OT/ST. Describes some features of vertigo, and perhaps an Alin maneuver could be attempted. Suspect he would benefit from IRU or SNF after acute discharge. With visual loss, consider ophtho consultation. Start ASA and statin. Check lipids in am. History of EtOH use - currently drinks 2-3 beers per day. Start Thiamine and Folate; Ativan PRN withdrawal symptoms. Nicotine patch PRN. Consult RT for tobacco cessation counseling. Lisinopril and Norvasc for HTN. He was on HCTZ but this was Dc'd d/t fall risk. Advanced directives: No DPOA; requests DNR status. [facility] records were reviewed. He had a myocardial perfusion scan which was negative, an echocardiogram that showed an EF 60% with normal wall thickness and no regional wall motion abnormalities. He also had a carotid Doppler that was negative for hemodynamically significant carotid artery stenosis. He also had a CTA of his chest done which showed a stable descending aorta that measures up to 4.4 x 3.8 cm. TSH on 12/20/16 was 0.93 & hgb A1c was 5.6%. No recent lipid panel. <Ana Powell - 12/28/16 17:07>
--- NOTE | 2016-12-27 16:19 | Consultation ---
DATE OF CONSULTATION 12/27/[address] Mendoza and Dr. Chi PATIENT'S CHIEF COMPLAINT Dizziness and weakness. HISTORY OF PRESENT ILLNESS The patient is a 66-year-old male with history of hypertension, prostate cancer , a stable ascending aortic aneurysm. The patient presented with recurrent episodes of dizziness, vertiginous sensation and weakness. His symptoms fluctuated over the past few days. He was seen in the ER in [facility] several times in the past week. The patient had a CT of the head initially that showed no acute abnormalities. This was later repeated and it showed evidence of acute ischemic changes in the left posterior cerebral artery distribution. The patient was supposed to have an MRI of the brain with his PCP a few weeks ago and this was not done due to insurance issues. The patient' s symptoms of weakness and dizziness progressed prior to the admission. He was found to be on the floor, unable to stand and walk. The patient had an MRI of the brain earlier today that showed evidence of acute ischemic stroke in the left posterior cerebral artery distribution. There was also evidence of acute ischemic changes in the right basal ganglia area. Patient has been complaining of constant dizziness and weakness in the legs in particular. This has been more profound on the left compared to the right. He is also having problem with visual perception and coordination bilaterally. His lab work workup showed no significant abnormalities. His vitals showed blood pressure in the 130 to 150/60 range. PHYSICAL EXAMINATION On physical examination, the patient was awake, alert, oriented x3. Pupils were round, reactive and equal. Extraocular muscles were intact. Visual field showed a well-defined right homonymous hemianopsia. Motor examination was 5-/5 on the right and 4/5 on the left. Sensory examination was slightly diminished on the left compared to the right. Coordination for [id number] was abnormal bilaterally with significant dysmetria and inability to focus on the objects. Deep tendon reflexes were 2/4. Plantar reflex was upgoing on the left and equivocal on the right. The patient is having difficulty standing and walking. ASSESSMENT Acute ischemic stroke affecting the left posterior cerebral artery distribution and right middle cerebral artery distribution. Those can be related to embolic etiology coming from the larger vessels including aorta or heart. This patient had a carotid Doppler that showed significant plaquing and no stenosis in the arteries. The patient has a history of aortic aneurysm there has been stable since 2011. PLAN 1. Start patient on Lovenox 1 mg/kg subcutaneous b.i.d. for anticoagulation and stroke prevention. 2. Continue aspirin 325 mg p.o. q.d. 3. Consult Cardiology for potential SIMNO and evaluation for cardiac arrhythmia. 4. The patient needs to be on telemetry to rule out any cardiac arrhythmia or palpitation problem. 5. Provide good fluid intake. 6. Start physical and occupational therapy to help the patient with mobility and balance problems. 7. Obtain a fasting lipid profile to check the patient's risk for stroke. MTDD
[2016-12-27] MEDS: ENOXAPARIN 60 MG/0.6 ML INJECTION SQ SCH (17:15)
[2016-12-27] MEDS: ATORVASTATIN 40 MG TABLET PO SCH (20:24)
[2016-12-27] MEDS: SALINE FLUSH 10ml SYRINGE IVF PRN (20:24)
[2016-12-28] MEDS: SALINE FLUSH 10ml SYRINGE IVF PRN ×2 (06:34→20:43)
[2016-12-28] MEDS: PANTOPRAZOLE 20 MG TABLET PO SCH (07:31)
[2016-12-28] MEDS ORDERED: INFLUENZA VAC. INJ. ADMIN CHARGE INJ ONE (07:59)
[2016-12-28] MEDS: FOLIC ACID 1 MG TABLET PO SCH (08:13)
[2016-12-28] MEDS: ASPIRIN 81 MG CHEWABLE TABLET PO SCH (08:21)
[2016-12-28] MEDS: AMLODIPINE 10 MG TABLET PO SCH (08:21)
[2016-12-28] MEDS: LISINOPRIL 40 MG TABLET PO SCH (08:21)
[2016-12-28] MEDS: ENOXAPARIN 60 MG/0.6 ML INJECTION SQ SCH ×2 (08:22→20:42)
[2016-12-28] MEDS ORDERED: PNEUMOCOCCAL 13 VACCINE 0.5ml INJECTION IM ONE (10:00)
--- NOTE | 2016-12-28 11:55 | Progress Note ---
DATE 12/28/[address] Mendoza and Dr. Chi The patient's chief complaint is dizziness and weakness due to stroke. HISTORY OF PRESENT ILLNESS Patient continues to complain of intermittent dizziness associated with mild headache. He is still having problem with coordination bilaterally. His left- sided weakness did not change since last evaluation. He continues to have right homonymous hemianopsia. He is also feeling a little bit tired today. He received his first Lovenox dosage last evening. The patient is scheduled to have a SIMON later today to check for any potential thrombus in the heart. The patient was started on physical therapy. There has not been any significant change on examination. PLAN 1. Continue Lovenox until we find a cause for his embolic stroke. 2. Follow up with cardiology recommendation. 3. Continue physical and occupational therapy. 4. Improve fluid intake.. 5. Monitor for any potential cardiac arrhythmia. [facility]
[2016-12-28] MEDS ORDERED: SALINE FLUSH 10ml SYRINGE ONE (12:22)
--- NOTE | 2016-12-28 14:16 | Transesophageal Echocardiogram ---
DATE OF PROCEDURE December 28, 2016 The patient is a 66-year-old gentleman who was admitted with cryptogenic stroke of unknown cause and was referred for further evaluation by transesophageal echocardiogram. Informed consent was obtained after explaining the procedure and the potential risks to the patient who agreed to proceed with the procedure. PROCEDURE Transesophageal echocardiogram. Conscious sedation was performed using Versed and fentanyl. Cetacaine spray was used for pharyngeal anesthesia. Probe was advanced into the esophagus and stomach and images were obtained in multiple planes. Left atrial dimension is mildly increased. Left ventricular end-diastolic dimension is normal. Left ventricular wall thickness appears to be increased. LV systolic function is normal with ejection fraction of about 65%. There is no thrombus in left atrium, left atrial appendage or left ventricle. Right atrium is normal. Right ventricle is normal. Aortic root dimension is normal. Mitral valve is morphologically normal. Aortic valve is a trileaflet structure with trace of central aortic insufficiency with no stenosis. Tricuspid valve shows trace of tricuspid regurgitation. Pulmonary valve shows trace of pulmonary insufficiency. There is no pericardial effusion. Agitated saline was injected which showed no evidence of [id number] shunt. Descending thoracic aorta shows moderate atherosclerosis. IMPRESSION 1. No intracardiac thrombus or mass. 2. Left atrial dilation. 3. Normal LV systolic function with ejection fraction of 65%. 4. Concentric left ventricular hypertrophy. 5. No evidence of [id number] shunt using agitated saline. 6. Trace of aortic insufficiency. 7. Trace of tricuspid regurgitation. 8. Trace of pulmonary insufficiency. 9. Moderate atherosclerosis of the descending thoracic aorta. MTDD
--- NOTE | 2016-12-28 15:08 | Progress Note ---
- Date 12/28/16 Subjective: The patient was seen at 1445 with his brother and cousin at the bedside. He remained slightly sedated from his SIMON. His brother is concerned that he is weak and has not been able to get up and move around. The patient continues to have a right-sided visual defect, he reports he is eating well. Nursing had called earlier because the patient had not voided, the patient had a bladder scan which showed about 375 cc of fluid, he was able to void about 225 ccs. Discussed with the monitoring manager, no signs of A fib, she does note he has had episodes of bradycardia. Objective Vital signs: Temperature 98.3 F 12/28/16 13:27 Pulse Rate 56 L 12/28/16 14:21 Respiratory Rate 16 12/28/16 14:21 Blood Pressure 129/69 12/28/16 14:21 Pulse Oximetry 94 12/28/16 14:21 Height/Weight/BMI: Height 5 ft 6 in Weight 143 lb 11.862 oz Body Mass Index 23.6 - Additional findings Additional findings: In general, the patient is sleepy but responsive, cooperative with exam, and in no respiratory distress. HEENT: Head is atraumatic, normocephalic, no conjunctival petechiae, no oral thrush, mucous membranes are moist and pink, left homonymous hemianopsia Lungs: Clear to auscultation without wheezes, crackles or rhonchi CV: Regular rate and rhythm without murmur Abdomen: Soft, nontender, bowel sounds are present, there is no guarding no rebound. Extremities: No clubbing, no cyanosis, no edema.Weak, no lateralizing signs Skin: Warm and dry, no sign of rash Results - Labs CBC & Chem 7: 12/28/16 04:22 12/28/16 04:22 - Echocardiogram Echocardiogram: PROCEDURE 12/28/16 Transesophageal echocardiogram. Conscious sedation was performed using Versed and fentanyl. Cetacaine spray was used for pharyngeal anesthesia. Probe was advanced into the esophagus and stomach and images were obtained in multiple planes. Left atrial dimension is mildly increased. Left ventricular end-diastolic dimension is normal. Left ventricular wall thickness appears to be increased. LV systolic function is normal with ejection fraction of about 65%. There is no thrombus in left atrium, left atrial appendage or left ventricle. Right atrium is normal. Right ventricle is normal. Aortic root dimension is normal. Mitral valve is morphologically normal. Aortic valve is a trileaflet structure with trace of central aortic insufficiency with no stenosis. Tricuspid valve shows trace of tricuspid regurgitation. Pulmonary valve shows trace of pulmonary insufficiency. There is no pericardial effusion. Agitated saline was injected which showed no evidence of [id number]-oz-aqml shunt. Descending thoracic aorta shows moderate atherosclerosis. IMPRESSION 1. No intracardiac thrombus or mass. 2. Left atrial dilation. 3. Normal LV systolic function with ejection fraction of 65%. 4. Concentric left ventricular hypertrophy. 5. No evidence of qksbe-vi-xlvw shunt using agitated saline. 6. Trace of aortic insufficiency. 7. Trace of tricuspid regurgitation. 8. Trace of pulmonary insufficiency. 9. Moderate atherosclerosis of the descending thoracic aorta. Assessment and Plan (1) Cerebrovascular accident Current visit: Yes Status: Acute DVT Prophylaxis: Lovenox GI Prophylaxis: Protonix Assessment and Plan: IMPRESSION Acute left occipital and posterior temporal lobe infarcts, smaller lacunar type infarcts in the right medial frontal and temporal lobe suspect embolic source Acute vision loss secondary to homonymous hemianopsia with left occipital involvement Leukocytosis, POA - possible stress reaction-resolved Mild hypernatremia, POA improved with IV fluids however now with hypokalemia we will supplement HTN stable on current meds Prostate cancer stable ascending aortic aneurysm 4.4x3.[address] on 12/21/16(reviewed [facility] and confirmed it is an ASCENDING aortic aneurysm) EtOH abuse tobacco dependency -patient has been advised to quit Recommendations: Appreciate Dr. Veronica and Jaxon's help Await lipid profile which will be completed tomorrow in discussion with laboratory. Continue Protonix for GI prophylaxis We'll check lab tomorrow The patient will need rehabilitation post discharge, PT and OT evaluation are pending. Discussed with the patient's brother and cousin. Hospital Course Summary Disclaimer: The visit summary below is not to be considered part of the above Progress Note. Hospital Course: 12/26/16 18:42 IMPRESSION Subacute ischemic infarct in the [employer] territory Acute vision loss Leukocytosis, POA - possible stress reaction Mild hypernatremia, POA HTN Prostate cancer stable ascending aortic aneurysm 4.4x3.[address] on 12/21/16 EtOH abuse; tobacco dependency PLAN Admit, inpatient status under the hospitalist service. IVF for hypernatremia and decreased oral drive - 1/2 NS at 75 mL/hr. Consult PT/OT/ST. Describes some features of vertigo, and perhaps an Alin maneuver could be attempted. Suspect he would benefit from IRU or SNF after acute discharge. With visual loss, consider ophtho consultation. Start ASA and statin. Check lipids in am. History of EtOH use - currently drinks 2-3 beers per day. Start Thiamine and Folate; Ativan PRN withdrawal symptoms. Nicotine patch PRN. Consult RT for tobacco cessation counseling. Lisinopril and Norvasc for HTN. He was on HCTZ but this was Dc'd d/t fall risk. Advanced directives: No DPOA; requests DNR status. [facility] records were reviewed. He had a myocardial perfusion scan which was negative, an echocardiogram that showed an EF 60% with normal wall thickness and no regional wall motion abnormalities. He also had a carotid Doppler that was negative for hemodynamically significant carotid artery stenosis. He also had a CTA of his chest done which showed a stable descending aorta that measures up to 4.4 x 3.8 cm. TSH on 12/20/16 was 0.93 & hgb A1c was 5.6%. No recent lipid panel.
[2016-12-28] MEDS ORDERED: FentaNYL 100 MCG/2 ML INJECTION IVP ONE (15:15)
[2016-12-28] MEDS ORDERED: MIDAZOLAM 2mg/2ml INJECTION IVP ONE (15:15)
[2016-12-28] MEDS ORDERED: SALINE FLUSH 10ml SYRINGE IV ONE (15:15)
[2016-12-28 15:26] VITALS: BMI 23.2
[2016-12-28] MEDS ORDERED: PNEUMOCOCCAL VAC ADMIN CHARGE INJ ONE (19:00)
[2016-12-28] MEDS: ATORVASTATIN 40 MG TABLET PO SCH (20:40)
[2016-12-28] MEDS: ACETAMINOPHEN 325 MG TABLET PO PRN (20:43)
[2016-12-29] MEDS: PANTOPRAZOLE 20 MG TABLET PO SCH (06:16)
[2016-12-29] MEDS: ENOXAPARIN 60 MG/0.6 ML INJECTION SQ SCH (09:24)
[2016-12-29] MEDS: LISINOPRIL 40 MG TABLET PO SCH (09:25)
[2016-12-29] MEDS: ASPIRIN 81 MG CHEWABLE TABLET PO SCH (09:25)
[2016-12-29] MEDS: AMLODIPINE 10 MG TABLET PO SCH (09:26)
[2016-12-29] MEDS: FOLIC ACID 1 MG TABLET PO SCH (09:26)
[2016-12-29] MEDS: POLYETHYL GLYCOL 3350 17gm PACKET PO SCH ×2 (11:42→21:55)
[2016-12-29] MEDS: CYANOCOBALAMIN (B-12) 1,000mcg/ml INJECTION IM SCH (13:09)
[2016-12-29] MEDS: ENOXAPARIN 40 MG/0.4 ML INJECTION SQ SCH (13:40)
--- NOTE | 2016-12-29 14:21 | Cardiology Progress Note ---
<Ana Powell - Last Filed: 12/29/16 15:05> Subjective Principal diagnosis: CVA Interval history: Iván is seen in follow up for CVA, HTN and HLD. He is laying in bed and agitated that nursing staff keeps moving the commode back from the bedside. He denies chest pain, palpitations or dyspnea Exam Vital signs: Temperature 98.2 F 12/29/16 04:00 Pulse Rate 54 L 12/29/16 04:00 Respiratory Rate 16 12/29/16 04:00 Blood Pressure 136/71 12/29/16 04:00 Pulse Oximetry 95 12/29/16 04:00 - Constitutional no acute distress, cooperative - Routine HEENT Exam Head: Present: normocephalic ENT: Present: mucous membranes moist - Routine Neck Exam Absent: JVD, carotid bruit - Routine Chest/Breast/Axilla Exam Chest wall: Absent: tenderness - Routine Respiratory Exam Present: CTA bilaterally. Absent: rales, wheezes - Routine Cardiovascular Exam Present: RRR, no murmur. Absent: JVD - Routine Abdominal Exam Present: soft, normoactive bowel sounds - Routine Extremities Exam Present: no edema - Routine Skin Exam Present: intact, dry, warm - Routine Neurological Exam Present: alert, oriented X3 - Routine Psychiatric Exam Present: normal affect - Additional findings Additional findings: Abnormal Lab Results 12/27/16 12/27/16 12/29/16 04:07 04:07 03:52 WBC 10.9 RBC 4.61 Hgb 15.3 Hct 46.0 MCV 99.8 MCH 33.2 MCHC 33.3 RDW Std Deviation 47.6 Plt Count 254 MPV 12.0 Immature Gran % (Auto) 0.3 Neut % (Auto) 67.9 H Lymph % (Auto) 15.5 L Brooks % (Auto) 11.5 H Eos % (Auto) 4.2 H Baso % (Auto) 0.6 Neut # (Auto) 7.4 Lymph # (Auto) 1.7 Brooks # (Auto) 1.3 H Eos # (Auto) 0.5 Baso # (Auto) 0.1 Abs Immat Gran (auto) 0.03 Turbidity Sodium Potassium Chloride Carbon Dioxide Anion Gap BUN Creatinine GFR Calculation BUN/Creatinine Ratio Glucose Calculated Osmolality Calcium Icterus Index Cholesterol 113 L LDL Cholesterol, Calc 60.2 L Cholesterol/HDL Ratio 3.1 Vitamin B12 170 L Folate 4.0 Specimen Hemolysis 12/29/16 03:52 WBC RBC Hgb Hct MCV MCH MCHC RDW Std Deviation Plt Count MPV Immature Gran % (Auto) Neut % (Auto) Lymph % (Auto) Brooks % (Auto) Eos % (Auto) Baso % (Auto) Neut # (Auto) Lymph # (Auto) Brooks # (Auto) Eos # (Auto) Baso # (Auto) Abs Immat Gran (auto) Turbidity < 20 Sodium 144 Potassium 3.6 Chloride 107 Carbon Dioxide 26 Anion Gap 11 BUN 13.0 Creatinine 0.9 GFR Calculation 84 BUN/Creatinine Ratio 14 Glucose 85 Calculated Osmolality 276 Calcium 9.5 Icterus Index < 2 Cholesterol LDL Cholesterol, Calc Cholesterol/HDL Ratio Vitamin B12 Folate Specimen Hemolysis < 15 Acetaminophen (Tylenol) 650 mg PO Q5H PRN PRN Reason: Discomfort Last Admin: 12/28/16 20:43 Dose: 650 mg Amlodipine Besylate (Norvasc) 10 mg PO DAILY [facility] Last Admin: 12/29/16 09:26 Dose: 10 mg Aspirin (Asa) 81 mg PO DAILY [facility] Last Admin: 12/29/16 09:25 Dose: 81 mg Atorvastatin Calcium (Lipitor) 40 mg PO HS [facility] Last Admin: 12/28/16 20:40 Dose: 40 mg Benzonatate (Tessalon Perles) 100 mg PO TID PRN PRN Reason: cough Bisacodyl (Dulcolax) 10 mg RECTALLY DAILY PRN PRN Reason: Constipation Last Admin: 12/29/16 11:42 Dose: 10 mg Cyanocobalamin (Vit. B-12) 1,000 mcg IM DAILY [facility] Last Admin: 12/29/16 13:09 Dose: 1,000 mcg Enoxaparin Sodium (Lovenox) 40 mg SQ DAILY [facility] Last Admin: 12/29/16 13:40 Dose: Not Given Folic Acid (Folate) 1 mg PO DAILY [facility] Last Admin: 12/29/16 09:26 Dose: 1 mg Lisinopril (Prinivil) 40 mg PO DAILY [facility] Last Admin: 12/29/16 09:25 Dose: 40 mg Lorazepam (Ativan Inj) 1 mg IVP Q6H PRN PRN Reason: Anxiety/Agitation Last Admin: 12/28/16 20:45 Dose: 1 mg Magnesium Hydroxide (Mom) 30 ml PO DAILY PRN PRN Reason: Constipation Last Admin: 12/29/16 10:35 Dose: 30 ml Meclizine HCl (Antivert) 25 mg PO QIDPRN PRN PRN Reason: Dizziness Nicotine (Nicoderm) 21 mg TD DAILY PRN Last Admin: 12/26/16 20:11 Dose: 21 mg Ondansetron HCl (Zofran) 4 mg IVP Q6H PRN PRN Reason: Nausea Pantoprazole Sodium (Protonix) 20 mg PO ACB [facility] Last Admin: 12/29/16 06:16 Dose: 20 mg Polyethylene Glycol (Miralax) 17 gm PO BID [facility] Last Admin: 12/29/16 11:42 Dose: 17 gm Sodium Chloride (Iv Flush) 10 - 80 ml IVF PRN PRN PRN Reason: Flushing Last Admin: 12/28/16 20:43 Dose: 10 ml Thiamine HCl (Vitamin B-1) 100 mg PO DAILY [facility] Last Admin: 12/29/16 09:25 Dose: 100 mg Date of Exam: 12/28/16 Type of Exam(s): US edilberto w/ doppler DATE OF PROCEDURE December 28, 2016 The patient is a 66-year-old gentleman who was admitted with cryptogenic stroke of unknown cause and was referred for further evaluation by transesophageal echocardiogram. Informed consent was obtained after explaining the procedure and the potential risks to the patient who agreed to proceed with the procedure. PROCEDURE Transesophageal echocardiogram. Conscious sedation was performed using Versed and fentanyl. Cetacaine spray was used for pharyngeal anesthesia. Probe was advanced into the esophagus and stomach and images were obtained in multiple planes. Left atrial dimension is mildly increased. Left ventricular end-diastolic dimension is normal. Left ventricular wall thickness appears to be increased. LV systolic function is normal with ejection fraction of about 65%. There is no thrombus in left atrium, left atrial appendage or left ventricle. Right atrium is normal. Right ventricle is normal. Aortic root dimension is normal. Mitral valve is morphologically normal. Aortic valve is a trileaflet structure with trace of central aortic insufficiency with no stenosis. Tricuspid valve shows trace of tricuspid regurgitation. Pulmonary valve shows trace of pulmonary insufficiency. There is no pericardial effusion. Agitated saline was injected which showed no evidence of ouogu-fl-oedc shunt. Descending thoracic aorta shows moderate atherosclerosis. IMPRESSION 1. No intracardiac thrombus or mass. 2. Left atrial dilation. 3. Normal LV systolic function with ejection fraction of 65%. 4. Concentric left ventricular hypertrophy. 5. No evidence of ksuyx-wx-wkea shunt using agitated saline. 6. Trace of aortic insufficiency. 7. Trace of tricuspid regurgitation. 8. Trace of pulmonary insufficiency. 9. Moderate atherosclerosis of the descending thoracic aorta. Assessment and Plan - Assessment and Plan (1) Cerebrovascular accident Status: Acute Atherosclerosis of descending thoracic aorta seen on EDILBERTO, one could assume he also has it in the ascending as well. Nothing concerning seen on telemetry or EKG for cause of CVA (2) Essential (primary) hypertension Status: Acute (3) Mixed hyperlipidemia Status: Acute Hospital Course Summary Disclaimer: The visit summary below is not to be considered part of the above Progress Note. Hospital Course: 12/26/16 18:42 IMPRESSION Subacute ischemic infarct in the [employer] territory Acute vision loss Leukocytosis, POA - possible stress reaction Mild hypernatremia, POA HTN Prostate cancer stable ascending aortic aneurysm 4.4x3.[address] on 12/21/16 EtOH abuse; tobacco dependency PLAN Admit, inpatient status under the hospitalist service. IVF for hypernatremia and decreased oral drive - 1/2 NS at 75 mL/hr. Consult PT/OT/ST. Describes some features of vertigo, and perhaps an Alin maneuver could be attempted. Suspect he would benefit from IRU or SNF after acute discharge. With visual loss, consider ophtho consultation. Start ASA and statin. Check lipids in am. History of EtOH use - currently drinks 2-3 beers per day. Start Thiamine and Folate; Ativan PRN withdrawal symptoms. Nicotine patch PRN. Consult RT for tobacco cessation counseling. Lisinopril and Norvasc for HTN. He was on HCTZ but this was Dc'd d/t fall risk. Advanced directives: No DPOA; requests DNR status. [facility] records were reviewed. He had a myocardial perfusion scan which was negative, an echocardiogram that showed an EF 60% with normal wall thickness and no regional wall motion abnormalities. He also had a carotid Doppler that was negative for hemodynamically significant carotid artery stenosis. He also had a CTA of his chest done which showed a stable descending aorta that measures up to 4.4 x 3.8 cm. TSH on 12/20/16 was 0.93 & hgb A1c was 5.6%. No recent lipid panel. <Ignacio Bates - Last Filed: 01/05/17 08:17> Exam Vital signs: Temperature 97.6 F 01/02/17 08:00 Pulse Rate 45 L 01/02/17 08:00 Respiratory Rate 18 01/02/17 08:00 Blood Pressure 127/73 01/02/17 08:00 Pulse Oximetry 99 01/02/17 08:00 Assessment and Plan - Assessment and Plan (1) Cerebrovascular accident Status: Acute (2) Essential (primary) hypertension Status: Acute (3) Mixed hyperlipidemia Status: Acute - Attestation Attestation Narrative: 01/05/17 08:17 Recommendation After examining the patient I agree with the above assessment. I am involved in the formulation of the patient's plan of care. Hospital Course Summary Disclaimer: The visit summary below is not to be considered part of the above Progress Note.
--- NOTE | 2016-12-29 14:28 | Progress Note ---
- Date 12/29/16 Subjective: The patient was seen at 1405. He is currently working with speech therapy, and eating his lunch. He continues to have notable visual field defects in trying to find a placement of his food on his tray. He reports overall he is doing well , except he continues to feel weak. He denies any shortness of breath, cough, diarrhea. Objective Vital signs: Temperature 98.2 F 12/29/16 04:00 Pulse Rate 54 L 12/29/16 04:00 Respiratory Rate 16 12/29/16 04:00 Blood Pressure 136/71 12/29/16 04:00 Pulse Oximetry 95 12/29/16 04:00 Height/Weight/BMI: Height 5 ft 6 in Weight 144 lb Body Mass Index 23.2 - Additional findings Additional findings: In general, the patient is alert and oriented 3, cooperative with exam, and in no respiratory distress. HEENT: Head is atraumatic, normocephalic, no conjunctival petechiae, Lungs: Clear to auscultation without wheezes, crackles or rhonchi CV: Regular rate and rhythm without murmur Abdomen: Soft, nontender, bowel sounds are present, there is no guarding no rebound. Extremities: No clubbing, no cyanosis, no edema. Skin: Warm and dry no sign of rash Neuro: Patient is alert Results - Labs CBC & Chem 7: 12/29/16 03:52 12/29/16 03:52 Assessment and Plan (1) Cerebrovascular accident Current visit: Yes Status: Acute DVT Prophylaxis: Lovenox GI Prophylaxis: Protonix Resuscitation Status: Do Not Resuscitate Assessment and Plan: IMPRESSION Acute left occipital and posterior temporal lobe infarcts, smaller lacunar type infarcts in the right medial frontal and temporal lobe suspect embolic source Acute vision loss secondary to homonymous hemianopsia with left occipital involvement B12 deficiency Leukocytosis, POA - possible stress reaction-resolved Mild hypernatremia, POA improved with IV fluids however now with hypokalemia we will supplement HTN stable on current meds Prostate cancer stable ascending aortic aneurysm 4.4x3.[address] on 12/21/16(reviewed [facility] notes and confirmed it is an ASCENDING aortic aneurysm) EtOH abuse tobacco dependency -patient has been advised to quit Recommendations: Appreciate Dr. Veronica and Jaxon's help After discussion with Dr. Veronica, base of the patient's low B12, we'll supplement with B12 1000 mg daily 7 days and then put on oral supplementation in addition Will adjust Lovenox to DVT prophylaxis doses of 40 mg subcutaneous daily and maintain one aspirin a day for anticoagulation. Lipid profile was reviewed with Dr. Veronica. It is not clear if the patient would benefit from statins at this point, will defer to Dr. Coates.. Continue Protonix for GI prophylaxis The patient does qualify for our IRU, and may be ready for transfer there on Sunday. Hospital Course Summary Disclaimer: The visit summary below is not to be considered part of the above Progress Note. Hospital Course: 12/26/16 18:42 IMPRESSION Subacute ischemic infarct in the [employer] territory Acute vision loss Leukocytosis, POA - possible stress reaction Mild hypernatremia, POA HTN Prostate cancer stable ascending aortic aneurysm 4.4x3.[address] on 12/21/16 EtOH abuse; tobacco dependency PLAN Admit, inpatient status under the hospitalist service. IVF for hypernatremia and decreased oral drive - 1/2 NS at 75 mL/hr. Consult PT/OT/ST. Describes some features of vertigo, and perhaps an Alin maneuver could be attempted. Suspect he would benefit from IRU or SNF after acute discharge. With visual loss, consider ophtho consultation. Start ASA and statin. Check lipids in am. History of EtOH use - currently drinks 2-3 beers per day. Start Thiamine and Folate; Ativan PRN withdrawal symptoms. Nicotine patch PRN. Consult RT for tobacco cessation counseling. Lisinopril and Norvasc for HTN. He was on HCTZ but this was Dc'd d/t fall risk. Advanced directives: No DPOA; requests DNR status. [facility] records were reviewed. He had a myocardial perfusion scan which was negative, an echocardiogram that showed an EF 60% with normal wall thickness and no regional wall motion abnormalities. He also had a carotid Doppler that was negative for hemodynamically significant carotid artery stenosis. He also had a CTA of his chest done which showed a stable descending aorta that measures up to 4.4 x 3.8 cm. TSH on 12/20/16 was 0.93 & hgb A1c was 5.6%. No recent lipid panel. Acute left occipital and posterior temporal lobe infarcts, smaller lacunar type infarcts in the right medial frontal and temporal lobe suspect embolic source Acute vision loss secondary to homonymous hemianopsia with left occipital involvement Leukocytosis, POA - possible stress reaction-resolved Mild hypernatremia, POA improved with IV fluids however now with hypokalemia we will supplement HTN stable on current meds Prostate cancer stable ascending aortic aneurysm 4.4x3.[address] on 12/21/16(reviewed [facility] notes and confirmed it is an ASCENDING aortic aneurysm) EtOH abuse tobacco dependency -patient has been advised to quit Recommendations: Appreciate Dr. Veronica and Jaxon's help Await lipid profile which will be completed tomorrow in discussion with laboratory. Continue Protonix for GI prophylaxis We'll check lab tomorrow The patient will need rehabilitation post discharge, PT and OT evaluation are pending. Discussed with the patient's brother and cousin 12/29/16 14:29
[2016-12-29] MEDS: SALINE FLUSH 10ml SYRINGE IVF PRN (21:56)
[2016-12-29] MEDS: ATORVASTATIN 40 MG TABLET PO SCH (21:56)
[2016-12-29] MEDS: ACETAMINOPHEN 325 MG TABLET PO PRN (22:00)
[2016-12-30] MEDS: ACETAMINOPHEN 325 MG TABLET PO PRN ×2 (06:12→20:16)
[2016-12-30] MEDS: PANTOPRAZOLE 20 MG TABLET PO SCH (06:12)
[2016-12-30] MEDS: SALINE FLUSH 10ml SYRINGE IVF PRN (06:13)
[2016-12-30] MEDS: ENOXAPARIN 40 MG/0.4 ML INJECTION SQ SCH (09:54)
[2016-12-30] MEDS: AMLODIPINE 10 MG TABLET PO SCH (09:54)
[2016-12-30] MEDS: LISINOPRIL 40 MG TABLET PO SCH (09:54)
[2016-12-30] MEDS: CYANOCOBALAMIN (B-12) 1,000mcg/ml INJECTION IM SCH (09:54)
[2016-12-30] MEDS: ASPIRIN 81 MG CHEWABLE TABLET PO SCH (09:54)
[2016-12-30] MEDS: FOLIC ACID 1 MG TABLET PO SCH (09:54)
[2016-12-30] MEDS: POLYETHYL GLYCOL 3350 17gm PACKET PO SCH ×2 (09:55→20:15)
--- NOTE | 2016-12-30 16:12 | Progress Note ---
<Gilma Batista V - Last Filed: 12/30/16 16:09> - Date 12/30/16 Subjective: Mr Mena is seen this afternoon following visit from his family. He voices frustration about the timing of staff in his room. He states he was awoke during the night for no reason and requests to keep disruptions to a minimum. No other complaints. Vision remain unchanged. Nursing reports he was able to ambulate to end of nice with assistance. Objective Vital signs: Temperature 98.0 F 12/30/16 15:21 Pulse Rate 56 L 12/30/16 15:21 Respiratory Rate 16 12/30/16 15:21 Blood Pressure 151/70 H 12/30/16 15:21 Pulse Oximetry 98 12/30/16 15:21 Height/Weight/BMI: Height 1.68 m Weight 65.6 kg Body Mass Index 23.2 Results - Labs CBC & Chem 7: 12/29/16 03:52 12/29/16 03:52 Assessment and Plan (1) Cerebrovascular accident Current visit: Yes Status: Acute Assessment and Plan: IMPRESSION Acute left occipital and posterior temporal lobe infarcts, smaller lacunar type infarcts in the right medial frontal and temporal lobe suspect embolic source Acute vision loss secondary to homonymous hemianopsia with left occipital involvement B12 deficiency Leukocytosis, POA - possible stress reaction-resolved Mild hypernatremia, POA improved with IV fluids however now with hypokalemia we will supplement HTN stable on current meds Prostate cancer stable ascending aortic aneurysm 4.4x3.[address] on 12/21/16(reviewed [facility] notes and confirmed it is an ASCENDING aortic aneurysm) EtOH abuse tobacco dependency -patient has been advised to quit Plan Spoke with nurse regarding attempting to decrease and minimize awakenings tonight Continue with vitamin B12 1000 milligrams daily IM through 01/05, then change to oral supplementation Blood pressure overall is well controlled. Did have a elevated reading this afternoon. We'll continue to monitor Continue aspirin daily Continue Protonix for GI prophylaxis Planning for transfer to the IRU unit in the next 1-2 days Hospital Course Summary Disclaimer: The visit summary below is not to be considered part of the above Progress Note. Hospital Course: 12/26/16 18:42 IMPRESSION Subacute ischemic infarct in the FILM EXAMINER territory Acute vision loss Leukocytosis, POA - possible stress reaction Mild hypernatremia, POA HTN Prostate cancer stable ascending aortic aneurysm 4.4x3.[address] on 12/21/16 EtOH abuse; tobacco dependency PLAN Admit, inpatient status under the hospitalist service. IVF for hypernatremia and decreased oral drive - 1/2 NS at 75 mL/hr. Consult PT/OT/ST. Describes some features of vertigo, and perhaps an Alin maneuver could be attempted. Suspect he would benefit from IRU or SNF after acute discharge. With visual loss, consider ophtho consultation. Start ASA and statin. Check lipids in am. History of EtOH use - currently drinks 2-3 beers per day. Start Thiamine and Folate; Ativan PRN withdrawal symptoms. Nicotine patch PRN. Consult RT for tobacco cessation counseling. Lisinopril and Norvasc for HTN. He was on HCTZ but this was Dc'd d/t fall risk. Advanced directives: No DPOA; requests DNR status. [facility] records were reviewed. He had a myocardial perfusion scan which was negative, an echocardiogram that showed an EF 60% with normal wall thickness and no regional wall motion abnormalities. He also had a carotid Doppler that was negative for hemodynamically significant carotid artery stenosis. He also had a CTA of his chest done which showed a stable descending aorta that measures up to 4.4 x 3.8 cm. TSH on 12/20/16 was 0.93 & hgb A1c was 5.6%. No recent lipid panel. 12/30/16 Plan Spoke with nurse regarding attempting to decrease and minimize awakenings tonight Continue with vitamin B12 1000 milligrams daily IM through 01/05, then change to oral supplementation Blood pressure overall is well controlled. Did have a elevated reading this afternoon. We'll continue to monitor Continue aspirin daily Continue Protonix for GI prophylaxis Planning for transfer to the IRU unit in the next 1-2 days <Elidia Mendoza - Last Filed: 12/30/16 17:28> - Date 12/30/16 Objective Vital signs: Temperature 98.0 F 12/30/16 15:21 Pulse Rate 56 L 12/30/16 15:21 Respiratory Rate 16 12/30/16 15:21 Blood Pressure 151/70 H 12/30/16 15:21 Pulse Oximetry 98 12/30/16 15:21 Height/Weight/BMI: Height 5 ft 6 in Weight 144 lb 9.972 oz Body Mass Index 23.2 Results - Labs CBC & Chem 7: 12/29/16 03:52 12/29/16 03:52 Assessment and Plan (1) Cerebrovascular accident Current visit: Yes Status: Acute Assessment and Plan: I have independently evaluated and examined this patient. I reviewed the chart, the patient's history, and the DIRECTOR CHANNEL/PA's documented findings as above. We discussed and formulated the assessment and plan as above with additions as below. Patient complains of some GI distress after eating lunch and requests something for it. He is relieved that he saw's daughter today. He reports he's been able to rest easily and has been more active today. In general, the patient is alert and oriented 3, cooperative with exam, and in no respiratory distress. HEENT: Head is atraumatic, normocephalic, no conjunctival petechiae, no oral thrush, mucous membranes are moist and pink. Visual field changes persist. Lungs: Clear to auscultation without wheezes, crackles or rhonchi CV: Regular rate and rhythm without murmur Abdomen: Soft, nontender, bowel sounds are present, there is no guarding no rebound. Extremities: No clubbing, no cyanosis, no edema. Skin: Warm and dry no sign of rash Neuro: Patient is alert Plan as above, will add Tums. Hope to transferred IRU tomorrow. Hospital Course Summary Disclaimer: The visit summary below is not to be considered part of the above Progress Note.
[2016-12-30] MEDS: CALCIUM CARBONATE Chewable 500mg TABLET PO PRN (17:54)
[2016-12-30] MEDS: ATORVASTATIN 40 MG TABLET PO SCH (20:17)
[2016-12-31] MEDS: PANTOPRAZOLE 20 MG TABLET PO SCH (06:03)
[2016-12-31] MEDS: ASPIRIN 81 MG CHEWABLE TABLET PO SCH (08:50)
[2016-12-31] MEDS: POLYETHYL GLYCOL 3350 17gm PACKET PO SCH ×2 (08:50→21:19)
[2016-12-31] MEDS: CALCIUM CARBONATE Chewable 500mg TABLET PO PRN (08:50)
[2016-12-31] MEDS: ACETAMINOPHEN 325 MG TABLET PO PRN (08:51)
[2016-12-31] MEDS: CYANOCOBALAMIN (B-12) 1,000mcg/ml INJECTION IM SCH (08:52)
[2016-12-31] MEDS: LISINOPRIL 40 MG TABLET PO SCH (08:52)
[2016-12-31] MEDS: AMLODIPINE 10 MG TABLET PO SCH (08:52)
[2016-12-31] MEDS: FOLIC ACID 1 MG TABLET PO SCH (08:52)
[2016-12-31] MEDS: ENOXAPARIN 40 MG/0.4 ML INJECTION SQ SCH (08:52)
--- NOTE | 2016-12-31 12:19 | Progress Note ---
<Gilma Batista V - Last Filed: 12/31/16 12:07> - Date 12/31/16 Subjective: Mr Mena is seen today while resting in bed. He is alert and pleasant and his overall affect is more positive today than yesterday. He verbalizes feeling better knowing that his family knows that he is hospitalized and they are taking care of his home matters. He denies having any pain or dyspnea. He feels that his vision has slightly improved. He is able to look across the room and tell what time it is. Noted he continues to be bradycardic 50s to 60s, blood pressure stable. Objective Vital signs: Temperature 97.8 F 12/31/16 08:10 Pulse Rate 52 L 12/31/16 08:10 Respiratory Rate 18 12/31/16 08:10 Blood Pressure 140/78 H 12/31/16 08:10 Pulse Oximetry 94 12/31/16 08:10 Height/Weight/BMI: Height 1.68 m Weight 63.9 kg Body Mass Index 23.2 - Constitutional Present: well nourished, well developed - Routine HEENT Exam Eye: Present: EOMI ENT: Present: mucous membranes moist, dentition normal Comments: Left visual field loss consistent with homonymous hemianopsia with left occipital involvement - Routine Respiratory Exam Present: CTA bilaterally. Absent: wheezes - Routine Cardiovascular Exam Present: RRR, S1, S2. Absent: murmur - Routine Abdominal Exam Present: soft, normoactive bowel sounds, non distended. Absent: tenderness - Routine Extremities Exam Present: normal capillary refill - Routine Skin Exam Present: dry, warm - Routine Neurological Exam Present: alert, oriented X3, CN II-XII intact - Routine Lymphatic Exam Lymphatic: Absent: adenopathy - Routine Psychiatric Exam Present: normal affect Results - Labs CBC & Chem 7: 12/29/16 03:52 12/29/16 03:52 Assessment and Plan (1) Cerebrovascular accident Current visit: Yes Status: Acute Assessment and Plan: Impression Acute left occipital and posterior temporal lobe infarcts, smaller lacunar type infarcts in the right medial frontal and temporal lobe suspect embolic source Acute vision loss secondary to homonymous hemianopsia with left occipital involvement Leukocytosis, POA - possible stress reaction-resolved Mild hypernatremia, POA improved with IV fluids however now with hypokalemia we will supplement HTN stable on current meds Prostate cancer stable ascending aortic aneurysm 4.4x3.[address] on 12/21/16(reviewed [facility] notes and confirmed it is an ASCENDING aortic aneurysm) EtOH abuse tobacco dependency -patient has been advised to quit Plan Appreciate Dr. Veronica and Jana's consultation recommendations Visual hutton appear to be improved today as reported by patient. Monitor blood pressure and continue on Norvasc He does verbalize feeling depressed. Initially following the acute event, however, feels that that is improving. Will continue to monitor carefully for signs of depression. Otherwise, patient appears to be medically stable. Labs reviewed from 12/29. Will plan to recheck tomorrow morning. Lovenox subcutaneous daily for DVT prophylaxis Planning to discharge to IRU tomorrow Hospital Course Summary Disclaimer: The visit summary below is not to be considered part of the above Progress Note. Hospital Course: 12/26/16 18:42 IMPRESSION Subacute ischemic infarct in the COLLAR POINTER territory Acute vision loss Leukocytosis, POA - possible stress reaction Mild hypernatremia, POA HTN Prostate cancer stable ascending aortic aneurysm 4.4x3.[address] on 12/21/16 EtOH abuse; tobacco dependency PLAN Admit, inpatient status under the hospitalist service. IVF for hypernatremia and decreased oral drive - 1/2 NS at 75 mL/hr. Consult PT/OT/ST. Describes some features of vertigo, and perhaps an Alin maneuver could be attempted. Suspect he would benefit from IRU or SNF after acute discharge. With visual loss, consider ophtho consultation. Start ASA and statin. Check lipids in am. History of EtOH use - currently drinks 2-3 beers per day. Start Thiamine and Folate; Ativan PRN withdrawal symptoms. Nicotine patch PRN. Consult RT for tobacco cessation counseling. Lisinopril and Norvasc for HTN. He was on HCTZ but this was Dc'd d/t fall risk. Advanced directives: No DPOA; requests DNR status. [facility] records were reviewed. He had a myocardial perfusion scan which was negative, an echocardiogram that showed an EF 60% with normal wall thickness and no regional wall motion abnormalities. He also had a carotid Doppler that was negative for hemodynamically significant carotid artery stenosis. He also had a CTA of his chest done which showed a stable descending aorta that measures up to 4.4 x 3.8 cm. TSH on 12/20/16 was 0.93 & hgb A1c was 5.6%. No recent lipid panel. 12/30/16 Plan Spoke with nurse regarding attempting to decrease and minimize awakenings tonight Continue with vitamin B12 1000 milligrams daily IM through 01/05, then change to oral supplementation Blood pressure overall is well controlled. Did have a elevated reading this afternoon. We'll continue to monitor Continue aspirin daily Continue Protonix for GI prophylaxis Planning for transfer to the IRU unit in the next 1-2 days 12/31/[address] Veronica and Jana's consultation recommendations Visual hutton appear to be improved today as reported by patient. Monitor blood pressure and continue on Norvasc He does verbalize feeling depressed. Initially following the acute event, however, feels that that is improving. Will continue to monitor carefully for signs of depression. Otherwise, patient appears to be medically stable. Labs reviewed from 12/29. Will plan to recheck tomorrow morning. Lovenox subcutaneous daily for DVT prophylaxis Planning to discharge to IRU tomorrow <Mukund Jones - Last Filed: 12/31/16 13:56> - Date 12/31/16 Objective Vital signs: Temperature 97.8 F 12/31/16 08:10 Pulse Rate 52 L 12/31/16 08:10 Respiratory Rate 18 12/31/16 08:10 Blood Pressure 140/78 H 12/31/16 08:10 Pulse Oximetry 94 12/31/16 08:10 Height/Weight/BMI: Height 1.68 m Weight 63.9 kg Body Mass Index 23.2 Results - Labs CBC & Chem 7: 12/29/16 03:52 12/29/16 03:52 Assessment and Plan Assessment and Plan: Patient seen and evaluated concurrently with Gilma Wei. He was lying in bed , comfortably. Stated that his vision may have improved a little bit today, and fact he could look at the clock until what time it was. Still has symptoms with one-sided vision loss. Lungs clear to auscultation, cardiac regular rate and rhythm with no murmur heard. Impression and plan developed concurrently with Gilma Wei. I agree with above-note in its entirety. Impression Acute left occipital and posterior temporal lobe infarcts, smaller lacunar type infarcts in the right medial frontal and temporal lobe suspect embolic source Acute vision loss secondary to homonymous hemianopsia with left occipital involvement Leukocytosis, POA - possible stress reaction-resolved Mild hypernatremia, POA improved with IV fluids however now with hypokalemia we will supplement HTN stable on current meds Prostate cancer stable ascending aortic aneurysm 4.4x3.[address] on 12/21/16(reviewed [facility] and confirmed it is an ASCENDING aortic aneurysm) EtOH abuse tobacco dependency -patient has been advised to quit Plan Appreciate Dr. Veronica and Jana's consultation recommendations Visual hutton appear to be improved today as reported by patient. Monitor blood pressure and continue on Norvasc He does verbalize feeling depressed. Initially following the acute event, however, feels that that is improving. Will continue to monitor carefully for signs of depression. Otherwise, patient appears to be medically stable. Labs reviewed from 12/29. Will plan to recheck tomorrow morning. Lovenox subcutaneous daily for DVT prophylaxis Planning to discharge to IRU tomorrow Mukund Jones M.D. Hospital Course Summary Disclaimer: The visit summary below is not to be considered part of the above Progress Note.
[2016-12-31] MEDS: ATORVASTATIN 40 MG TABLET PO SCH ×2 (19:40→21:19)
[2016-12-31] MEDS: SALINE FLUSH 10ml SYRINGE IVF PRN (19:40)
[2017-01-01] MEDS: PANTOPRAZOLE 20 MG TABLET PO SCH (06:23)
[2017-01-01] MEDS: SALINE FLUSH 10ml SYRINGE IVF PRN ×3 (06:24→20:28)
[2017-01-01] MEDS: ENOXAPARIN 40 MG/0.4 ML INJECTION SQ SCH (10:18)
[2017-01-01] MEDS: NICOTINE 21 MG PATCH TD PRN (10:18)
[2017-01-01] MEDS: CYANOCOBALAMIN (B-12) 1,000mcg/ml INJECTION IM SCH (10:19)
[2017-01-01] MEDS: LISINOPRIL 40 MG TABLET PO SCH (10:19)
[2017-01-01] MEDS: FOLIC ACID 1 MG TABLET PO SCH (10:19)
[2017-01-01] MEDS: AMLODIPINE 10 MG TABLET PO SCH (10:20)
[2017-01-01] MEDS: ASPIRIN 81 MG CHEWABLE TABLET PO SCH (10:20)
[2017-01-01] MEDS: POLYETHYL GLYCOL 3350 17gm PACKET PO SCH ×2 (13:02→20:28)
[2017-01-01] MEDS: ACETAMINOPHEN 325 MG TABLET PO PRN (15:07)
--- NOTE | 2017-01-01 15:14 | Progress Note ---
<Gilma Batista V - Last Filed: 01/01/17 15:10> - Date 01/01/17 Subjective: Iván is seen today in follow up while up in the chair. He plans of feeling uncomfortable and having bad positioning in the chair causing his low back to hurt. He voices his frustration feels like nothing is happening fast enough for him. In regards to discharge planning. He is frustrated that his family has not visited him today. Denies feeling short of breath or having GI concerns. Vital signs are stable Objective Vital signs: Temperature 97.3 F 01/01/17 08:00 Pulse Rate 54 L 01/01/17 08:00 Respiratory Rate 16 01/01/17 08:00 Blood Pressure 123/69 01/01/17 08:00 Pulse Oximetry 96 01/01/17 08:00 Height/Weight/BMI: Height 1.68 m Weight 64.4 kg Body Mass Index 23.2 - Constitutional Present: no acute distress, well nourished, well developed - Routine HEENT Exam Eye: Present: EOMI ENT: Present: mucous membranes moist, dentition normal - Routine Respiratory Exam Present: CTA bilaterally. Absent: wheezes - Routine Cardiovascular Exam Present: RRR, S1, S2. Absent: murmur - Routine Abdominal Exam Present: soft, normoactive bowel sounds, non distended. Absent: tenderness - Routine Extremities Exam Present: pulses intact - Routine Skin Exam Present: intact, dry, warm - Routine Neurological Exam Present: alert, oriented X3, CN II-XII intact - Routine Lymphatic Exam Lymphatic: Absent: adenopathy - Routine Psychiatric Exam Present: cooperative, agitated Results - Labs CBC & Chem 7: 01/01/17 04:21 01/01/17 04:21 Assessment and Plan (1) Cerebrovascular accident Current visit: Yes Status: Acute Assessment and Plan: Impression Acute left occipital and posterior temporal lobe infarcts, smaller lacunar type infarcts in the right medial frontal and temporal lobe suspect embolic source Acute vision loss secondary to homonymous hemianopsia with left occipital involvement Leukocytosis, POA - possible stress reaction-resolved Mild hypernatremia, POA improved with IV fluids however now with hypokalemia we will supplement HTN stable on current meds Prostate cancer stable ascending aortic aneurysm 4.4x3.[address] on 12/21/16(reviewed [facility] notes and confirmed it is an ASCENDING aortic aneurysm) EtOH abuse tobacco dependency -patient has been advised to quit Plan Appreciate Dr. Veronica and Jana's consultation recommendations Continue to monitor blood pressure and continue on Norvasc Labs today stable Lovenox subcutaneous daily for DVT prophylaxis Hopeful for discharge to IRU soon awaiting insurance approval Hospital Course Summary Disclaimer: The visit summary below is not to be considered part of the above Progress Note. Hospital Course: 12/26/16 18:42 IMPRESSION Subacute ischemic infarct in the AEROSPACE ENGINEER OFFICER ARMAMENT territory Acute vision loss Leukocytosis, POA - possible stress reaction Mild hypernatremia, POA HTN Prostate cancer stable ascending aortic aneurysm 4.4x3.[address] on 12/21/16 EtOH abuse; tobacco dependency PLAN Admit, inpatient status under the hospitalist service. IVF for hypernatremia and decreased oral drive - 1/2 NS at 75 mL/hr. Consult PT/OT/ST. Describes some features of vertigo, and perhaps an Alin maneuver could be attempted. Suspect he would benefit from IRU or SNF after acute discharge. With visual loss, consider ophtho consultation. Start ASA and statin. Check lipids in am. History of EtOH use - currently drinks 2-3 beers per day. Start Thiamine and Folate; Ativan PRN withdrawal symptoms. Nicotine patch PRN. Consult RT for tobacco cessation counseling. Lisinopril and Norvasc for HTN. He was on HCTZ but this was Dc'd d/t fall risk. Advanced directives: No DPOA; requests DNR status. [facility] records were reviewed. He had a myocardial perfusion scan which was negative, an echocardiogram that showed an EF 60% with normal wall thickness and no regional wall motion abnormalities. He also had a carotid Doppler that was negative for hemodynamically significant carotid artery stenosis. He also had a CTA of his chest done which showed a stable descending aorta that measures up to 4.4 x 3.8 cm. TSH on 12/20/16 was 0.93 & hgb A1c was 5.6%. No recent lipid panel. 12/30/16 Plan Spoke with nurse regarding attempting to decrease and minimize awakenings tonight Continue with vitamin B12 1000 milligrams daily IM through 01/05, then change to oral supplementation Blood pressure overall is well controlled. Did have a elevated reading this afternoon. We'll continue to monitor Continue aspirin daily Continue Protonix for GI prophylaxis Planning for transfer to the IRU unit in the next 1-2 days 12/31/[address] Veronica and Jana's consultation recommendations Visual hutton appear to be improved today as reported by patient. Monitor blood pressure and continue on Norvasc He does verbalize feeling depressed. Initially following the acute event, however, feels that that is improving. Will continue to monitor carefully for signs of depression. Otherwise, patient appears to be medically stable. Labs reviewed from 12/29. Will plan to recheck tomorrow morning. Lovenox subcutaneous daily for DVT prophylaxis Planning to discharge to IRU tomorrow 01/01/17- Plan. Appreciate Dr. Veronica and Jana's consultation recommendations. Continue to monitor blood pressure and continue on Norvasc. Labs today stable. Lovenox subcutaneous daily for DVT prophylaxis Hopeful for discharge to IRU soon awaiting insurance approval <Richi Chi D - Last Filed: 01/01/17 18:08> - Date 01/01/17 Objective Vital signs: Temperature 97.2 F 01/01/17 16:00 Pulse Rate 53 L 01/01/17 16:00 Respiratory Rate 16 01/01/17 16:00 Blood Pressure 128/65 01/01/17 16:00 Pulse Oximetry 96 01/01/17 16:00 Height/Weight/BMI: Height 1.68 m Weight 64.4 kg Body Mass Index 23.2 Results - Labs CBC & Chem 7: 01/01/17 04:21 01/01/17 04:21 Assessment and Plan (1) Cerebrovascular accident Current visit: Yes Status: Acute Assessment and Plan: Impression Acute left occipital and posterior temporal lobe infarcts, smaller lacunar type infarcts in the right medial frontal and temporal lobe suspect embolic source Acute vision loss secondary to homonymous hemianopsia with left occipital involvement Leukocytosis (POA) - possible stress reaction-resolved Mild hypernatremia (POA) improved Hypokalemia (Not POA) HTN stable on current meds Prostate cancer stable ascending aortic aneurysm 4.4x3.[address] on 12/21/16(reviewed [facility] notes and confirmed it is an ASCENDING aortic aneurysm) EtOH abuse Tobacco dependency -patient has been advised to quit Have independently interviewed and examined pt. Chart reviewed. Case discussed with CM and my SOLOIST DANCER. Care plan developed with my supervision; agree with above. Doing fair. Frustrated this evening that he is having a hard time using his cell phone-can't see well enough to use it. Breathing stable. No chest pain. Lungs: clear CV: regular AB: soft nt/nd Plan: Continue PT/OT to help maximize functional status. Continue with Blood pressure control. IRU screen placed, awaking insurance approval. Hospital Course Summary Disclaimer: The visit summary below is not to be considered part of the above Progress Note.
[2017-01-01] MEDS: ATORVASTATIN 40 MG TABLET PO SCH (20:28)
[2017-01-01 20:58] VITALS: RESP 18
[2017-01-02] MEDS: PANTOPRAZOLE 20 MG TABLET PO SCH (06:20)
[2017-01-02] MEDS: SALINE FLUSH 10ml SYRINGE IVF PRN (08:54)
[2017-01-02] MEDS: ENOXAPARIN 40 MG/0.4 ML INJECTION SQ SCH (08:54)
[2017-01-02] MEDS: CYANOCOBALAMIN (B-12) 1,000mcg/ml INJECTION IM SCH (08:54)
[2017-01-02] MEDS: AMLODIPINE 10 MG TABLET PO SCH (08:55)
[2017-01-02] MEDS: ASPIRIN 81 MG CHEWABLE TABLET PO SCH (08:55)
[2017-01-02] MEDS: POLYETHYL GLYCOL 3350 17gm PACKET PO SCH (08:55)
[2017-01-02] MEDS: FOLIC ACID 1 MG TABLET PO SCH (08:55)
[2017-01-02] MEDS: LISINOPRIL 40 MG TABLET PO SCH (08:55)
[2017-01-02 09:43] VITALS: BP 127/73; TEMP 97.6; O2SAT 99
[2017-01-02 10:55] VITALS: PULSE 45
[2017-01-02] MEDS ORDERED: NICOTINE PATCH REMOVAL TD PRN (12:39)
[2017-01-02] MEDS ORDERED: MECLIZINE 25 MG TABLET PO PRN (12:45)
--- NOTE | 2017-01-02 15:11 | Progress Note ---
- Date 01/02/17 Subjective: F/U: CVA Doing okay today. Tolerating therapy. Breathing well. Eating well. No f/c. Objective Vital signs: Temperature 97.6 F 01/02/17 08:00 Pulse Rate 45 L 01/02/17 08:00 Respiratory Rate 18 01/02/17 08:00 Blood Pressure 127/73 01/02/17 08:00 Pulse Oximetry 99 01/02/17 08:00 Height/Weight/BMI: Height 1.68 m Weight 64.3 kg Body Mass Index 23.2 - Constitutional Present: no acute distress, moderate distress, well nourished, cooperative - Routine HEENT Exam Head: Present: normocephalic, atraumatic Eye: Present: EOMI, PERRL ENT: Present: mucous membranes moist - Routine Respiratory Exam Present: CTA bilaterally. Absent: respiratory distress, rhonchi, wheezes, crackles - Routine Cardiovascular Exam Present: RRR, no murmur - Routine Abdominal Exam Present: soft, normoactive bowel sounds, non distended, non tender - Routine Extremities Exam Present: no edema. Absent: cyanosis, clubbing - Routine Musculoskeletal Exam Musculoskeletal: Present: no clubbing or cyanosis - Routine Skin Exam Present: dry, warm - Routine Neurological Exam Present: alert, oriented X3, CN II-XII intact, moving all extremities, hearing grossly intact - Routine Psychiatric Exam Present: normal affect, normal thought process, cooperative. Absent: anxious Results - Labs CBC & Chem 7: 01/01/17 04:21 01/01/17 04:21 Assessment and Plan (1) Cerebrovascular accident Current visit: Yes Status: Acute Assessment and Plan: Impression Acute left occipital and posterior temporal lobe infarcts, smaller lacunar type infarcts in the right medial frontal and temporal lobe suspect embolic source Acute vision loss secondary to homonymous hemianopsia with left occipital involvement Leukocytosis (POA) - possible stress reaction - resolved Mild hypernatremia (POA) improved Hypokalemia (Not POA) HTN stable on current medications Prostate cancer stable ascending aortic aneurysm 4.4x3.[address] on 12/21/16(reviewed [facility] notes and confirmed it is an ASCENDING aortic aneurysm) EtOH abuse Tobacco dependency -patient has been advised to quit Plan Patient accepted to [facility] to continue skilled care. Medically stable for discharge. Will continue with ASA therapy and Lipitor for stroke prevention. Continue BP control. PT/OT to help maximize functional status. F/U with Dr Teixeira in 1 week. See orders for details. Case discussed with CM. Time spent with patient care and discharge greater than 30 minutes. DVT Prophylaxis: SCD's, Lovenox Resuscitation Status: Do Not Resuscitate Hospital Course Summary Disclaimer: The visit summary below is not to be considered part of the above Progress Note. Hospital Course: 12/26/16 18:42 IMPRESSION Subacute ischemic infarct in the STABBER territory Acute vision loss Leukocytosis, POA - possible stress reaction Mild hypernatremia, POA HTN Prostate cancer Stable ascending aortic aneurysm 4.4x3.[address] on 12/21/16 EtOH abuse Tobacco dependency PLAN Admit, inpatient status under the hospitalist service. IVF for hypernatremia and decreased oral drive - 1/2 NS at 75 mL/hr. Consult PT/OT/ST. Describes some features of vertigo, and perhaps an Alin maneuver could be attempted. Suspect he would benefit from IRU or SNF after acute discharge. With visual loss, consider ophtho consultation. Start ASA and statin. Check lipids in am. History of EtOH use - currently drinks 2-3 beers per day. Start Thiamine and Folate; Ativan PRN withdrawal symptoms. Nicotine patch PRN. Consult RT for tobacco cessation counseling. Lisinopril and Norvasc for HTN. He was on HCTZ but this was Dc'd d/t fall risk. Advanced directives: No DPOA; requests DNR status. [facility] [place] records were reviewed. He had a myocardial perfusion scan which was negative, an echocardiogram that showed an EF 60% with normal wall thickness and no regional wall motion abnormalities. He also had a carotid Doppler that was negative for hemodynamically significant carotid artery stenosis. He also had a CTA of his chest done which showed a stable descending aorta that measures up to 4.4 x 3.8 cm. TSH on 12/20/16 was 0.93 & hgb A1c was 5.6%. No recent lipid panel. 12/30/16 Spoke with nurse regarding attempting to decrease and minimize awakenings tonight Continue with vitamin B12 1000 milligrams daily IM through 01/05, then change to oral supplementation Blood pressure overall is well controlled. Did have a elevated reading this afternoon. We'll continue to monitor Continue aspirin daily Continue Protonix for GI prophylaxis Planning for transfer to the IRU unit in the next 1-2 days 12/31/16 Visual hutton appear to be improved today as reported by patient. Monitor blood pressure and continue on Norvasc He does verbalize feeling depressed. Initially following the acute event, however, feels that that is improving. Will continue to monitor carefully for signs of depression. Otherwise, patient appears to be medically stable. Labs reviewed from 12/29. Will plan to recheck tomorrow morning. Lovenox subcutaneous daily for DVT prophylaxis Planning to discharge to IRU tomorrow 01/01/17 Continue to monitor blood pressure and continue on Norvasc. Labs today stable. Lovenox subcutaneous daily for DVT prophylaxis Hopeful for discharge to IRU soon awaiting insurance approval 01/02/17 Patient accepted to [facility] to continue skilled care. Medically stable for discharge. Will continue with ASA therapy and Lipitor for stroke prevention. Continue BP control. PT/OT to help maximize functional status. F/U with Dr Teixeira in 1 week. See orders for details.
--- NOTE | 2017-01-02 15:19 | Extended Care Facility Orders ---
Admission Orders Admit to:: Nursing Home Allergies/Adverse Reactions: Allergies No Known Allergies Allergy (Verified 12/26/16 14:17) Admitting Diagnosis: Stroke Admitting Physician: Richi hCi MD Attending Physician: Dr Teixeira Code Status: Do Not Resuscitate Anticiapted Length of Stay: 30 days or less Rehab Potential: fair Rehab Prognosis: fair Diet: Soft diet with regular liquids. No added salt. May use Facility Protocol or Standing Orders: Yes May have flu vaccine: Yes Evaluations/Treatment: Speech (Communication skills ), PT, OT Nursing Home Certification: I certify that SNF services are required to be given on an Inpatient basis because of the patients need for residential care on a continuing basis for the condition(s) for which he/she received inpatient hospital services prior to his/her transfer to the SNF. SNF inpatient care is necessary for the following reasons Indication for Nursing Home: Med Admininistration, Other (Skilled PT/OT/ Speech to maximize functional status. ) - Additional Information In Event of Arrest: Do Not Start CPR Resident is Aware of Diagnosis: Yes Referrals: Enrique Teixeira DO [Family Provider] - 1 Week (Hospital follow up for Stroke ) Additional Orders: F/U with Dr Teixeira in 1 week. Recheck CMP in 1 week secondary to medicaiton use.
--- NOTE | 2017-01-02 15:27 | Discharge Summary ---
Discharge Information Date of admission: 12/26/16 15:33 Anticipated date of discharge: 01/02/17 Attending Physician: Richi Chi MD Primary care physician: Enrique Teixeira DO Consults: Physician Consult: Ignacio Bates Reason For Exam: embolic cva Physician Consult: Kayla Veronica Reason For Exam: embolic cva PT/OT/Speech RT for tobacco cessation - Discharge Diagnosis (1) Cerebrovascular accident Status: Acute Discharge Diagnosis: Discharge diagnosis Acute left occipital and posterior temporal lobe infarcts, smaller lacunar type infarcts in the right medial frontal and temporal lobe suspect embolic source Acute vision loss secondary to homonymous hemianopsia with left occipital involvement Associated conditions and complications Leukocytosis (POA) - possible stress reaction - resolved Mild hypernatremia (POA) improved Hypokalemia (Not POA) Vitamin B12 deficiency HTN stable on current medications Prostate cancer stable ascending aortic aneurysm 4.4x3.[address] on 12/21/16 (reviewed [facility] notes and confirmed it is an ASCENDING aortic aneurysm) EtOH abuse Tobacco dependency -patient has been advised to quit - Procedures Procedures: Date of Exam: 12/28/16 PROCEDURE: Transesophageal echocardiogram. Conscious sedation was performed using Versed and fentanyl. Cetacaine spray was used for pharyngeal anesthesia. Probe was advanced into the esophagus and stomach and images were obtained in multiple planes. Left atrial dimension is mildly increased. Left ventricular end-diastolic dimension is normal. Left ventricular wall thickness appears to be increased. LV systolic function is normal with ejection fraction of about 65%. There is no thrombus in left atrium, left atrial appendage or left ventricle. Right atrium is normal. Right ventricle is normal. Aortic root dimension is normal. Mitral valve is morphologically normal. Aortic valve is a trileaflet structure with trace of central aortic insufficiency with no stenosis. Tricuspid valve shows trace of tricuspid regurgitation. Pulmonary valve shows trace of pulmonary insufficiency. There is no pericardial effusion. Agitated saline was injected which showed no evidence of cjkfn-tq-[id number] shunt. Descending thoracic aorta shows moderate atherosclerosis. IMPRESSION 1. No intracardiac thrombus or mass. 2. Left atrial dilation. 3. Normal LV systolic function with ejection fraction of 65%. 4. Concentric left ventricular hypertrophy. 5. No evidence of fcskf-sm-ebdn shunt using agitated saline. 6. Trace of aortic insufficiency. 7. Trace of tricuspid regurgitation. 8. Trace of pulmonary insufficiency. 9. Moderate atherosclerosis of the descending thoracic aorta. - Laboratory Labs: Admit Lab 12/26/16 14:46 WBC 13.1 H Hgb 16.0 Hct 47.9 MCV 100.4 H MCH 33.5 Plt Count 245 Neut % (Auto) 73.6 H Lymph % (Auto) 13.7 L Admit Lab 12/26/16 14:46 Sodium 145 H Potassium 3.9 Chloride 113 H D Carbon Dioxide 22 Anion Gap 10 BUN 11.0 Creatinine 0.9 D GFR Calculation 84 BUN/Creatinine Ratio 12 Glucose 90 Calculated Osmolality 278 Calcium 9.6 Total Bilirubin 1.20 AST 23 D ALT 42 Alkaline Phosphatase 72 Troponin I < 0.012 Total Protein 7.1 Albumin 4.0 Globulin 3.1 Albumin/Globulin Ratio 1.3 Lipid profile 12/27/16 04:07 Triglycerides 84 Cholesterol 113 L LDL Cholesterol, Calc 60.2 L VLDL Cholesterol 16.8 HDL Cholesterol 36 L Cholesterol/HDL Ratio 3.1 LOW B12 Level 12/27/16 04:07 Vitamin B12 170 L 01/01/17 04:21 01/01/17 04:21 - Radiology Radiology: Date of Exam: 12/26/16 PROCEDURE: CT head/brain wo con FINDINGS: The ventricles are unchanged. There is a new infarct seen in the medial left occipital lobe as seen on axial image #24 with loss of the multani- white differentiation. Old bilateral basal ganglia lacunar infarcts. There is no evidence of acute intracranial hemorrhage, midline displacement, or mass effect. There are scattered areas of low attenuation in the white matter which most likely represent changes of chronic microvascular ischemia. The tympanic cavities and mastoid air cells are free of appreciable disease. There are no definite fractures of the skull base, calvarium, or visualized portion of the midface. IMPRESSION: New left [employer] territory infarct involving the left occipital lobe. This is not visible on the comparison study and is estimated at 12 to 48 hours of age. Date of Exam: 12/27/16 PROCEDURE: MR head/brain wo con FINDINGS: Large area of acute diffusion restriction in the left occipital lobe as seen on the CT comparison. This extends into the medial posterior aspect of the temporal lobe as well. There are smaller foci of diffusion restriction in the right thalamus and right posterior limb of the internal capsule. These regions all have T2/FLAIR hyperintensity as expected. Moderate generalized atrophy. The ventricles are stable. There are additional areas of T2/FLAIR signal abnormality in the deep frontoparietal white matter that most likely represent small vessel ischemic disease. This is advanced for the patient's age. The brain stem, cerebellum, and cerebral hemispheres otherwise have a normal morphologic appearance as well as MR signal intensity on all pulse sequences. There is no evidence of an intracranial mass lesion, intracranial hemorrhage, or hydrocephalus. The visualized portions of the orbits, calvarium, paranasal sinuses, and skull base demonstrate no significant abnormality. IMPRESSION: Acute left occipital and posterior temporal lobe infarcts in the [employer] territory. Smaller lacunar type infarcts in the right medial frontal and temporal lobe in the distribution of the anterior choroidal artery. Given the bilateral infarcts in multiple vascular territories an embolic source is suspected. Date of Exam: 12/26/16 PROCEDURE: US carotid doppler BI The right vertebral artery is patent with cephalic flow. The left vertebral artery is patent with cephalic flow. Heavy calcified plaque at the left carotid bulb and proximal ICA. Mild plaque in the common carotid artery with moderate plaque in the right carotid bulb and proximal to mid ICA. No focal velocity elevations. IMPRESSION: No hemodynamically significant carotid stenosis. History of Present Illness HPI: Mr. Mena is a 66 y/o male who has had intermittent issues with dizziness, near-syncope, and vertigo for the last several months. He established with Dr. Teixeira in November, after not seeing a provider in over 2 years. He was started on Lisinopril for HTN and an MRI was ordered. Due to scheduling and insurance issues, this was not done in a timely manner. He was admitted to [facility] for chest pain r/o on 12/19/16 - EKG showed SR with PAC's, inverted T waves in leads II & III; serial troponin was negative x3; a CTA Chest showed a stable ascending aortic aneurysm; a myocardial perfusion study by Dr. Knott was normal with an estimated EF of 72%; carotid duplex was negative for hemodynamically significant stenosis. He was sent home and HCTZ was discontinued d/t fall risk. He was Rx meclizine for dizziness. He was evaluated again at [facility] on 12/24/16 for dizziness and a fall at home. Here, he received IVF and his dizziness improved. Head CT was negative for stroke or bleed. He was sent home in stable condition, but continued to have dizziness and generalized weakness. He has not eaten anything for the last 1-2 days, and hardly has taken in any fluids - has no appetite lately. His memory is fuzzy regarding his recent admission, and he feels like he's had some memory loss. When MRI called to schedule an appointment, he reported to the person on the other end of the line that he was on the floor. They contacted Iván's brother, who activated 911 [address] transport[address] A [address] scan in the ED showed a INS[employer] territory stroke. Labs showed mild leukocytosis, mild hypernatremia. Troponin was negative. EKG showed sinus heidi. He was given ASA and meclizine in the ED. Dr. Chi was contacted, and admitted Mr. Mena to inpatient status. For complete details of the H&P refer to that document. Objective Vital signs: Temperature 97.6 F 01/02/17 08:00 Pulse Rate 45 L 01/02/17 08:00 Respiratory Rate 18 01/02/17 08:00 Blood Pressure 127/73 01/02/17 08:00 Pulse Oximetry 99 01/02/17 08:00 Height/Weight/BMI: Height 1.68 m Weight 64.3 kg Body Mass Index 23.2 Hospital Course This is a general summary of the patient's hospital course. For more details refer to the complete medical record. Hospital course: 12/26/16 18:42 IMPRESSION Subacute ischemic infarct in the [employer] territory Acute vision loss Leukocytosis, POA - possible stress reaction Mild hypernatremia, POA HTN Prostate cancer Stable ascending aortic aneurysm 4.4x3.[address] on 12/21/16 EtOH abuse Tobacco dependency PLAN Admit, inpatient status under the hospitalist service. IVF for hypernatremia and decreased oral drive - 1/2 NS at 75 mL/hr. Consult PT/OT/ST. Describes some features of vertigo, and perhaps an Alin maneuver could be attempted. Suspect he would benefit from IRU or SNF after acute discharge. With visual loss, consider ophtho consultation. Start ASA and statin. Check lipids in am. History of EtOH use - currently drinks 2-3 beers per day. Start Thiamine and Folate; Ativan PRN withdrawal symptoms. Nicotine patch PRN. Consult RT for tobacco cessation counseling. Lisinopril and Norvasc for HTN. He was on HCTZ but this was Dc'd d/t fall risk. Advanced directives: No DPOA; requests DNR status. [facility] records were reviewed. He had a myocardial perfusion scan which was negative, an echocardiogram that showed an EF 60% with normal wall thickness and no regional wall motion abnormalities. He also had a carotid Doppler that was negative for hemodynamically significant carotid artery stenosis. He also had a CTA of his chest done which showed a stable descending aorta that measures up to 4.4 x 3.8 cm. TSH on 12/20/16 was 0.93 & hgb A1c was 5.6%. No recent lipid panel. 12/27/16 Needs further evaluation of embolic source Will consult Dr. Veronica for neurology- discussed with him. States patient on therapeutic Lovenox at 1 mg/kg subcutaneous twice a day, a fasting lipid profile is pending, the patient remains on telemetry. We'll consult Dr. Coates for a SIMON Will supplement potassium with by mouth today We'll add Protonix for GI prophylaxis We'll check lab tomorrow The patient will need rehabilitation post discharge, PT and OT evaluation are pending. 12/28/[address] Bates 12/29/[address] Veronica and Jaxon's help After discussion with Dr. Veronica, base of the patient's low B12, we'll supplement with B12 1000 mg daily 7 days and then put on oral supplementation in addition. Will adjust Lovenox to DVT prophylaxis doses of 40 mg subcutaneous daily and maintain one aspirin a day for anticoagulation. Lipid profile was reviewed with Dr. Veronica. It is not clear if the patient would benefit from statins at this point, will defer to Dr. Coates. 12/30/16 Spoke with nurse regarding attempting to decrease and minimize awakenings tonight Continue with vitamin B12 1000 milligrams daily IM through 01/05, then change to oral supplementation Blood pressure overall is well controlled. Did have a elevated reading this afternoon. We'll continue to monitor 12/31/16 Visual hutton appear to be improved today as reported by patient. Monitor blood pressure and continue on Norvasc He does verbalize feeling depressed. Initially following the acute event, however, feels that that is improving. Will continue to monitor carefully for signs of depression. 01/01/17 Continue to monitor blood pressure and continue on Norvasc. Labs today stable. Lovenox subcutaneous daily for DVT prophylaxis Hopeful for discharge to IRU soon awaiting insurance approval 01/02/17 Patient accepted to [facility] to continue skilled care. IR[place] [facility] [place] but declined by patient's insurance. Medically stable for discharge. Will continue with ASA therapy and Lipitor for stroke prevention. Continue BP control. PT/OT to help maximize functional status. F/U with Dr Teixeira in 1 week. See orders for details. DVT Prophylaxis: SCD's, Lovenox Discharge Plan - Med Rec/Dispo Referrals/Follow Up: Enrique Teixeira DO [Family Provider] - 1 Week (Hospital follow up for Stroke ) Juanjo Instructions: Transesophageal Echocardiogram (GEN), Stroke (GEN) Prescriptions: New Bisacodyl Supp [Dulcolax] 10 mg RECTALLY DAILY PRN supp PRN Reason: Constipation CALCIUM CARBONATE Chewable [Tums] 1,000 mg PO PRN PRN tab.chew PRN Reason: Dyspepsia Folic Acid [Folate] 1 mg PO DAILY tablet PEG 3350 17gm PACKET [Miralax] 17 gm PO BID packet Thiamine HCl 100 mg PO DAILY tablet Aspirin Chewable [ASA] 81 mg PO DAILY tab.chew Atorvastatin [Lipitor] 40 mg PO HS tablet Cyanocobalamin (Vitamin B-12) [Vitamin B-12] 1,000 mcg PO DAILY #100 tab Continue Lisinopril [Zestril] 40 mg PO DAILY Benzonatate [Tessalon Perles] 100 mg PO TID PRN PRN Reason: cough Amlodipine [Norvasc] 10 mg PO DAILY Changed Meclizine [Antivert] 25 mg PO QID PRN #0 PRN Reason: Dizziness Discharge Instructions/Outpatient Orders: Provider Discharge Instructions Location: Determined By Patient - Disposition 03 To SNU Not [facility] (SNF) - Attestation Attestation Narrative: 01/02/17 15:29 I have independently interviewed and examined patient prior to discharge. See my progress note from today for details. Medically stable for discharge to skilled care.
== END 2017-01-02 16:00 | DRG 65 ==
LOC: ED 14:04 → SUATTDRO 15:33 → MED 15:33
PROVIDERS: ADMIT Hospitalist; ATTEND Hospitalist